=== PATIENT | female | born 1935 | race Hispanic/Latino ===

== ENCOUNTER 2016-11-24 15:20 | Inpatient (IN) | payer MEDICARE, MEDICAID ==
[2016-11-24 15:32] VITALS: BMI 21.0
--- NOTE | 2016-11-24 16:16 | ED PDOC ---
Arrival/HPI - General Chief Complaint: Abdominal Pain Time Seen by Provider: 11/24/16 15:40 Historian: Patient - History of Present Illness Narrative History of Present Illness (Text): 11/24/16 16:16 Patient complains of 6 day h/o constipation with mild abdominal discomfort that started today. States that she has been taking miralax bid x 4 days with no relief. Otherwise: (-) nausea / vomiting, (-) diarrhea, (-) fever, (-) urinary symptoms, (-) melena, (-) hematochezia. PMD [place]ucho Past Medical History - Provider Review Nursing Documentation Reviewed: Yes - Tetanus Immunization Tetanus Immunization: Unknown - Cardiac Hx Pacemaker: No - Pulmonary Hx Lung Cancer: Yes - HEENT Hx Cataracts: Yes (eye surgery) - Endocrine/Metabolic Hx Diabetes Mellitus Type 2: Yes - Hematological/Oncological Hx Blood Transfusions: No Hx Blood Transfusion Reaction: No - Musculoskeletal/Rheumatological Hx Musculoskeletal Disorders: Yes - Psychiatric Hx Emotional Abuse: No Hx Physical Abuse: No Hx Substance Use: No - Surgical History Hx Eye Surgery: Yes - Anesthesia Hx Anesthesia Reactions: No Hx Malignant Hyperthermia: No - Suicidal Assessment Feels Threatened In Home Enviroment: No Family/Social History - Physician Review Nursing Documentation Reviewed: Yes Family/Social History: No Known Family HX Smoking Status: Former Smoker Hx Alcohol Use: No Hx Substance Use: No Allergies/Home Meds Allergies/Adverse Reactions: Allergies acetaminophen [From Percocet] Allergy (Verified 11/24/16 15:33) REDNESS fluticasone [From Advair Diskus] Allergy (Verified 11/24/16 15:33) REDNESS oxycodone [From Percocet] Allergy (Verified 11/24/16 15:33) REDNESS salmeterol [From Advair Diskus] Allergy (Verified 11/24/16 15:33) REDNESS fluticasone furoate [From Breo Ellipta] Adverse Reaction (Verified 11/24/16 15: 33) REDNESS vilanterol [From Breo Ellipta] Adverse Reaction (Verified 11/24/16 15:33) REDNESS Home Medications: Home Meds Medication Instructions Recorded Confirmed Clopidogrel [Plavix] 75 mg PO DAILY 03/18/14 11/24/16 Glipizide [Glucotrol] 2.5 mg PO QAM 03/18/14 11/24/16 Polyethylene Glycol 3350 [Miralax] 17 gm PO QPM 03/18/14 11/24/16 Risedronate Sodium [Actonel] 70 mg PO FIFI 03/18/14 11/24/16 Albuterol Sulfate [Proair Hfa] 0.09 mg IH BID 06/06/15 11/24/16 Docusate [Colace] 100 mg PO QPM 06/06/15 11/24/16 Losartan [Cozaar] 100 mg PO QAM 06/06/15 11/24/16 amLODIPine [Norvasc] 5 mg PO QAM 06/06/15 11/24/16 Ezetimibe [Zetia] 10 mg PO DAILY 11/24/16 11/24/16 Review of Systems - Review of Systems Constitutional: Normal. absent: Fatigue, Weight Change, Fevers Respiratory: Normal. absent: SOB, Cough, Sputum Cardiovascular: Normal. absent: Chest Pain, Palpitations, Edema Gastrointestinal: Normal, Constipation. absent: Abdominal Pain, Stool Changes Musculoskeletal: Normal. absent: Arthralgias, Back Pain, Neck Pain Skin: Normal. absent: Rash, Pruritis, Skin Lesions Physical Exam Vital Signs Reviewed: Yes Vital Signs Temp Pulse Resp BP Pulse Ox 11/24/16 22:36 73 18 146/94 H 11/24/16 21:07 73 18 146/94 H 96 11/24/16 19:51 80 18 144/71 97 11/24/16 17:22 90 18 147/58 L 95 11/24/16 15:27 99 F 92 H 18 147/75 95 Temperature: Afebrile Blood Pressure: Normal Pulse: Regular Respiratory Rate: Normal Appearance: Positive for: Well-Appearing, Non-Toxic, Comfortable Pain Distress: None Mental Status: Positive for: Alert and Oriented X 3 - Systems Exam Head: Present: Atraumatic, Normocephalic Mouth: Present: Moist Mucous Membranes Pharnyx: Present: Normal Neck: Present: Normal Range of Motion. No: MIDLINE TENDERNESS Respiratory/Chest: Present: Clear to Auscultation, Good Air Exchange. No: Accessory Muscle Use, Wheezes, Rhonchi Cardiovascular: Present: Regular Rate and Rhythm, Normal S1, S2. No: Murmurs Abdomen: Present: Normal Bowel Sounds. No: Tenderness, Distention, Rebound, Guarding Rectal: Present: Rectal Tenderness, Hemorrhoids, Normal Rectal Tone, Other (no fecal impaction, soft stool in the rectum, emergency room RN Xochitl was present during the entire exam). No: Occult Blood, Gross Blood, Melena Back: Present: Normal Inspection. No: CVA Tenderness, Midline Tenderness Upper Extremity: Present: Normal Inspection, Normal ROM. No: Edema Lower Extremity: Present: Normal Inspection, Normal ROM. No: Edema Neurological: Present: GCS=15, CN II-XII Intact Skin: Present: Warm, Dry, Normal Color. No: Rashes Medical Decision Making ED Course and Treatment: 11/24/16 16:13 81 yo F presents with 6 day h/o constipation. Plan: - Fleet enema MA - Lactulose PO 11/24/16 16:17 Pt given lactulose PO and fleet enema MA. On re-evaluation, patient is resting in bed comfortably in no acute distress. Abdomen remains soft and non-tender with no guarding and no rebound. Pt was able to have a very small bowel movement after the fleet. However continues to c /o feeling constipated. AXR ordered. AXR: (+) moderate amount of constipation with stool noted in the rectum, otherwise NSBGP, (-) air fluid levels, as read by PA. Pt medicated with Mg citrate PO. Repeat rectal exam : (+) fecal impaction, attempted to disimpact the pt, however she could not tolerate the procedure and refuses for PA to attempt any further. Pt given another dose of fleet enema by RN. Pt assisted to the bedside commode and encouraged to have a BM. On second re-evaluation, patient is resting in bed comfortably in no acute distress. Abdomen remains soft and no tenderness, no guarding and no rebound. Pt states that she still can not have a BM. Call placed to pt's pmd. Case d/w Dr. Hinojosa, agrees with plan for inpt observation, requesting consult with Dr. Cunha. Agrees with current plan for labs and CT A/P. Pt notified of plan of care for inpt obs and agrees with current plan. 11/25/16 00:[address] Hinojosa notified, requesting for Dr. Rodriguez for surgery consult. Surgery resident called and case discussed, CT results reviewed with him, states he will evaluate the patient. Jerod IV ordered. - RAD Interpretation Narrative RAD Interpretations (Text): 11/25/16 00:45 CT A/P w/ po and iv contrast : FINDINGS: Lower thorax: Lung bases with scarring, atelectasis, changes of centrilobular emphysema. There is a large hiatus hernia. Calcifications in keeping with coronary artery disease, please correlate whether there has been previous procedures to the heart, likely mitral annular calcification. ABDOMEN: Liver: Multifocal hypoattenuating findings in the liver which are too small to characterize, as are not ultra characterized as benign cysts, comparison to previous is recommended. Gallbladder and bile ducts: The gallbladder is mildly distended but no calcified stones. Common bile duct within normal limits. Pancreas: Unremarkable. No mass. No ductal dilation. Spleen: Unremarkable. No splenomegaly. Adrenals: Unremarkable. No mass. Kidneys and ureters: Multiple hypoattenuating findings in the bilateral kidneys which are too small to characterize. No hydronephrosis of either kidney. Stomach and bowel: There is multifocal pneumatosis involving the large intestine , favor that there is pneumatosis of the ascending colon with possibility of pseudopneumatosis in this area, additional findings of pneumatosis in the transverse colon through the rectum in a segmental distribution. The rectum is greatly distended and packed with formed fecal material with pneumatosis and surrounding inflammatory change in the rectum is considered to be the most abnormal segment of the large intestine. High suspicion for stercoral colitis (colitis on the basis of fecal impaction). There is prominent edema/stranding and fluid surrounding the rectum in keeping with suspected colitis affecting primarily this area. Remainder of the large intestine does not have adjacent inflammatory change. The small bowel is within normal limits. Appendix: No findings to suggest acute appendicitis. PELVIS: Bladder: Unremarkable. No mass. Reproductive: Uterus is not visualized in keeping with hysterectomy. ABDOMEN and PELVIS: Intraperitoneal space: There is no free intraperitoneal air. Fluid adjacent to rectum. Bones/joints: Degenerative spine changes. No acute fracture. No dislocation. Soft tissues: Coronal im 48 likely penetrating ulcer vs short focal dissection. Vasculature: There is atherosclerotic calcification. Within limits of the study which was not performed as an angiogram, the mesenteric arteries and veins are favored to be patent. Lymph nodes: Unremarkable. No enlarged lymph nodes. Multiple small retroperitoneal nodes. IMPRESSION: Marked distention of the rectum by formed fecal material with pneumatosis most prominent in the rectum and prominent adjacent inflammatory changes, in keeping with colitis on the basis of fecal impaction. Multifocal pneumatosis in the large intestine, although some of this particularly in the proximal colon may represent pneumatosis, and further noted that there is no finding of portal venous air. Other as above. If there has been previous imaging please compare on-site. No free air. Dictated and Authenticated by: Mimi Carmen MD 11/25/2016 12:37 AM Eastern Time ([place] & [place]) Radiology Orders: 11/24/16 17:09 obstructive series [ABD 2 VIEWS (FLAT/UP OR DECUB)] [RAD] Stat 11/24/16 20:19 ABD PELVIS PO & IV CONTRAST [CT] Stat - Medication Orders Current Medication Orders: Amlodipine Besylate (Norvasc) 5 mg PO QAM [facility] Clopidogrel Bisulfate (Plavix) 75 mg PO DAILY [facility] Sodium Chloride (Sodium Chloride 0.9%) 1,000 mls @ 75 mls/hr IV .[id number] [facility] Metronidazole (Flagyl) 250 mg in 50 mls @ 100 mls/hr IVPB Q8 [facility] PRN Reason: Protocol Stop: 11/30/16 06:01 Ampicillin Sodium/Sulbactam Sodium (Unasyn 1 Gm-0.5 Gm) 1 gm in 100 mls @ 100 mls/hr IVPB Q6H [facility] PRN Reason: Protocol Losartan Potassium (Cozaar) 100 mg PO QAM [facility] Discontinued Medications Sodium Chloride (Sodium Chloride 0.9%) 500 mls @ 1,000 mls/hr IV .Q30M STA Stop: 11/24/16 20:48 Last Admin: 11/24/16 21:11 Dose: 1,000 mls/hr Piperacillin Sod/Tazobactam Sod (Zosyn 3.375 In Ns 100ml) 100 mls @ 200 mls/hr IVPB STAT STA PRN Reason: Protocol Stop: 11/25/16 01:23 Iohexol (Omnipaque 240 (50 Ml)) Confirm Administered Dose 50 ml .ROUTE .STK-MED ONE Stop: 11/24/16 20:26 Iohexol (Omnipaque 350 100 Ml) Confirm Administered Dose 350 mg .ROUTE .STK-MED ONE Stop: 11/24/16 20:26 Lactulose (Enulose) 20 gm PO ONCE STA Stop: 11/24/16 16:04 Last Admin: 11/24/16 16:21 Dose: 20 gm Magnesium Citrate (Citrate Of Mag) 300 ml PO ONCE ONE Stop: 11/24/16 17:42 Last Admin: 11/24/16 18:04 Dose: 300 ml Morphine Sulfate (Morphine) 2 mg IVP STAT STA Stop: 11/24/16 20:43 Last Admin: 11/24/16 21:10 Dose: 2 mg Ondansetron HCl (Zofran Inj) 4 mg IVP STAT STA Stop: 11/24/16 20:43 Last Admin: 11/24/16 21:09 Dose: 4 mg Sodium Phosphate (Fleet Enema) 135 ml RC STAT STA Stop: 11/24/16 16:04 Last Admin: 11/24/16 16:22 Dose: 135 ml Sodium Phosphate (Fleet Enema) 135 ml RC STAT STA Stop: 11/24/16 17:31 Last Admin: 11/24/16 18:04 Dose: 135 ml - PA / ILLUSIONIST / Resident Statement / has reviewed & agrees with the documentation as recorded. Disposition/Present on Arrival - Present on Arrival Any Indicators Present on Arrival: No History of DVT/PE: No History of Uncontrolled Diabetes: No Urinary Catheter: No History of Decub. Ulcer: No History Surgical Site Infection Following: None - Disposition Have Diagnosis and Disposition been Completed?: Yes Diagnosis: Constipation Disposition: HOSPITALIZED Disposition Time: 20:00 Patient Plan: Observation Patient Problems: Current Active Problems Problem Status Onset Constipation Acute Condition: STABLE
[2016-11-24] MEDS ORDERED: Magnesium Citrate Oral SOL (300 ml) PO ONE (17:41)
[2016-11-24] MEDS ORDERED: Sodium Chloride 0.9% 500 ML IV STA (20:19)
[2016-11-24] MEDS ORDERED: Iohexol 240 (50 ml) ONE (20:25)
[2016-11-24] MEDS ORDERED: Iohexol 350 MG/100 ML VIAL ONE (20:25)
[2016-11-24] MEDS ORDERED: Morphine 4 mg/ml ISec IVP STA (20:42)
[2016-11-24 21:33] LABS: BASO # 0.01 K/mm3 (0.0-2.0); BASO % 0.1 % (0.0-3.0); EOS % 0.1 % (1.5-5.0); GRAN # 11.35 (1.4-6.5); GRAN % 85.8 % (50.0-68.0); HEMOGLOBIN 14.6 gm/dL (12.0-16.0); LYMPH # 1.1 (1.2-3.4); LYMPH % 8.5 % (22.0-35.0); MEAN CELL VOLUME 84.4 fL (80.0-105.0); MEAN CORPUSCULAR HEMOGLOBIN 28.5 pg (25.0-35.0); MEAN CORPUSCULAR HGB CONC 33.8 g/dl (31.0-37.0); MEAN PLATELET VOLUME 10.3 fl (7.0-11.0); MONO # 0.7 (0.1-0.6); MONO % 5.5 % (1.0-6.0); PLATELET COUNT 271 10^3/uL (120.0-450.0); RBC 5.12 10^6/uL (3.5-6.1); RED CELL DISTRIBUTION WIDTH 13.9 % (11.5-14.5); WHITE BLOOD COUNT 13.2 10^3/ul (4.5-11.0)
[2016-11-24 21:42] LABS: INR 1.04 (0.93-1.08); PARTIAL THROMBOPLASTIN TIME 26.1 Seconds (23.7-30.8); PROTHROMBIN TIME 11.2 Seconds (9.9-11.8)
[2016-11-24 21:46] LABS: ALB/GLOB RATIO 1.5 (1.1-1.8); ALT/SGPT 29 U/L (7-56); AST/SGOT 25 U/L (15-39); BLOOD UREA NITROGEN 25 mg/dL (7-21); CALCIUM 10.2 mg/dL (8.4-10.5); GFR AFRICAN-AMERICAN > 60; GFR NON-AFRICAN AMERICAN 53; LIPASE 70 U/L (23-300)
--- NOTE | 2016-11-25 00:37 | CT ---
EXAM: CT Abdomen and Pelvis With Intravenous Contrast CLINICAL HISTORY: 81 years old, female; Pain; Abdominal pain; Generalized; Additional info: Constipation, R/O obstruction TECHNIQUE: Axial computed tomography images of the abdomen and pelvis with intravenous contrast. This CT exam was performed using one or more of the following dose reduction techniques: automated exposure control, adjustment of the mA and/or kV according to patient size, and/or use of iterative reconstruction technique. CONTRAST: 100 mL of OMNI 350 administered intravenously. EXAM DATE/TIME: Exam ordered 11/24/2016 8:19 PM COMPARISON: DX - ABD 2 VIEWS (FLAT/UP OR DECUB) 11/24/2016 5:17:57 PM FINDINGS: Lower thorax: Lung bases with scarring, atelectasis, changes of centrilobular emphysema. There is a large hiatus hernia. Calcifications in keeping with coronary artery disease, please correlate whether there has been previous procedures to the heart, likely mitral annular calcification. ABDOMEN: Liver: Multifocal hypoattenuating findings in the liver which are too small to characterize, as are not ultra characterized as benign cysts, comparison to previous is recommended. Gallbladder and bile ducts: The gallbladder is mildly distended but no calcified stones. Common bile duct within normal limits. Pancreas: Unremarkable. No mass. No ductal dilation. Spleen: Unremarkable. No splenomegaly. Adrenals: Unremarkable. No mass. Kidneys and ureters: Multiple hypoattenuating findings in the bilateral kidneys which are too small to characterize. No hydronephrosis of either kidney. Stomach and bowel: There is multifocal pneumatosis involving the large intestine, favor that there is pneumatosis of the ascending colon with possibility of pseudopneumatosis in this area, additional findings of pneumatosis in the transverse colon through the rectum in a segmental distribution. The rectum is greatly distended and packed with formed fecal material with pneumatosis and surrounding inflammatory change in the rectum is considered to be the most abnormal segment of the large intestine. High suspicion for stercoral colitis (colitis on the basis of fecal impaction). There is prominent edema/stranding and fluid surrounding the rectum in keeping with suspected colitis affecting primarily this area. Remainder of the large intestine does not have adjacent inflammatory change. The small bowel is within normal limits. Appendix: No findings to suggest acute appendicitis. PELVIS: Bladder: Unremarkable. No mass. Reproductive: Uterus is not visualized in keeping with hysterectomy. ABDOMEN and PELVIS: Intraperitoneal space: There is no free intraperitoneal air. Fluid adjacent to rectum. Bones/joints: Degenerative spine changes. No acute fracture. No dislocation. Soft tissues: Coronal im 48 likely penetrating ulcer vs short focal dissection. Vasculature: There is atherosclerotic calcification. Within limits of the study which was not performed as an angiogram, the mesenteric arteries and veins are favored to be patent. Lymph nodes: Unremarkable. No enlarged lymph nodes. Multiple small retroperitoneal nodes. IMPRESSION: Marked distention of the rectum by formed fecal material with pneumatosis most prominent in the rectum and prominent adjacent inflammatory changes, in keeping with colitis on the basis of fecal impaction. Multifocal pneumatosis in the large intestine, although some of this particularly in the proximal colon may represent pneumatosis, and further noted that there is no finding of portal venous air. Other as above. If there has been previous imaging please compare on-site. No free air.
[2016-11-25] MEDS ORDERED: Piperacillin/Tazobact 3.375 gm 100 ML IVPB STA (00:54)
--- NOTE | 2016-11-25 01:38 | CP.PCM.CON ---
History of Present Illness - History of Present Illness History of Present Illness: Gen Sx: Dr Rodriguez Re: Constipation PMH obtained from medical records and sister who is bedside. Pt is an 81F with PMH of HTN, DM, Carotid Artery stenosis and chronic constipation. Pt reports to ED with worsening abdominal pain and constipation x 6 days. She denies any f/c, n/v or diarrhea. Pt has a history of similar problems in the past. Most recently in May when she also had a colonoscopy with multiple tubular adenoma polyps removed. Sister reports she has been taking miralax, colace and lactulose at home and has been unable to pass a bowel movement. In the ED pt received 3 phosphate enemas and manual disimpaction was attempted but pt could not tolerate due to pain. CT shows significant fecal impaction, possible stercoral proctitis and mild degree of pneumatosis. PMH: HTN, DM PSH: Hysterectomy Allergies: tylenol, fluticasone, oxycodone, salmeterol, vilanterol Review of Systems - Review of Systems All systems: reviewed and no additional remarkable complaints except (as per hpi ) Past Patient History - Tetanus Immunizations Tetanus Immunization: Unknown - Past Social History Smoking Status: Former Smoker - CARDIAC Hx Pacemaker: No - PULMONARY Hx Lung Cancer: Yes - HEENT Hx Cataracts: Yes (eye surgery) - ENDOCRINE/METABOLIC Hx Diabetes Mellitus Type 2: Yes - HEMATOLOGICAL/ONCOLOGICAL Hx Blood Transfusions: No Hx Blood Transfusion Reaction: No - MUSCULOSKELETAL/RHEUMATOLOGICAL Hx Musculoskeletal Disorders: Yes - PSYCHIATRIC Hx Emotional Abuse: No Hx Physical Abuse: No Hx Substance Use: No - SURGICAL HISTORY Hx Eye Surgery: Yes - ANESTHESIA Hx Anesthesia Reactions: No Hx Malignant Hyperthermia: No Meds Allergies/Adverse Reactions: Allergies Allergy/AdvReac Type Severity Reaction Status Date / Time acetaminophen [From Percocet] Allergy REDNESS Verified 11/24/16 15:33 fluticasone Allergy REDNESS Verified 11/24/16 15:33 [From Advair Diskus] oxycodone [From Percocet] Allergy REDNESS Verified 11/24/16 15:33 salmeterol Allergy REDNESS Verified 11/24/16 15:33 [From Advair Diskus] fluticasone furoate AdvReac REDNESS Verified 11/24/16 15:33 [From Breo Ellipta] vilanterol AdvReac REDNESS Verified 11/24/16 15:33 [From Fab Singh] - Medications Medications: Current Medications Amlodipine Besylate (Norvasc) 5 mg PO QAM [facility] Clopidogrel Bisulfate (Plavix) 75 mg PO DAILY [facility] Sodium Chloride (Sodium Chloride 0.9%) 1,000 mls @ 75 mls/hr IV .[id number] [facility] Losartan Potassium (Cozaar) 100 mg PO QAM [facility] Physical Exam - Constitutional Appears: Non-toxic, No Acute Distress - Respiratory Exam Respiratory Exam: absent: Accessory Muscle Use, Respiratory Distress - Cardiovascular Exam Cardiovascular Exam: REGULAR RHYTHM. absent: Tachycardia - GI/Abdominal Exam GI & Abdominal Exam: Distended, Firm, Tenderness (diffuse). absent: Guarding, Hernia - Neurological Exam Neurological exam: Alert - Psychiatric Exam Psychiatric exam: Normal Affect, Normal Mood - Skin Skin Exam: Normal Color, Warm Results - Vital Signs Recent Vital Signs: Last Vital Signs Temp 99 F 11/24/16 15:27 Pulse 73 11/24/16 22:36 Resp 16 11/24/16 23:00 BP 146/94 H 11/24/16 22:36 Pulse Ox 99 11/24/16 23:00 - Labs Result Diagrams: 11/24/16 20:45 11/24/16 20:45 Labs: Laboratory Results - last 24 hr 11/24/16 11/24/16 11/24/16 20:45 20:45 20:45 WBC 13.2 H D RBC 5.12 Hgb 14.6 Hct 43.2 MCV 84.4 MCH 28.5 MCHC 33.8 RDW 13.9 Plt Count 271 MPV 10.3 Gran % 85.8 H Lymph % (Auto) 8.5 L [place] % (Auto) 5.5 Eos % (Auto) 0.1 L Baso % (Auto) 0.1 Gran # 11.35 H Lymph # 1.1 L [place] # 0.7 H Eos # 0.0 Baso # 0.01 PT 11.2 INR 1.04 APTT 26.1 Sodium 143 Potassium 4.4 Chloride 99 Carbon Dioxide 25 Anion Gap 23 H BUN 25 H Creatinine 1.0 Est GFR ( Amer) > 60 Est GFR (Non-Af Amer) 53 Random Glucose 144 H Calcium 10.2 Total Bilirubin 1.2 AST 25 ALT 29 Alkaline Phosphatase 79 Total Protein 8.4 H Albumin 5.0 H Globulin 3.4 Albumin/Globulin Ratio 1.5 Lipase 70 Assessment & Plan - Assessment and Plan (Free Text) Assessment: 81F with fecal impaction and pneumatosis coli Plan: NPO IV Fluids Resumed PO home meds GI Consult Dr Obrien IV abx pt not tolerating manual disimpaction, may need disimpaction by surgery team or GI team under anesthesia will d/w Dr Michael Pat, PGY3 - Date & Time Date: 11/25/16 Time: 01:43
[2016-11-25] MEDS: Sodium Chloride 0.9% 1,000 ML IV SCH ×2 (03:04→23:00)
--- NOTE | 2016-11-25 03:43 | CP.PCM.PN ---
Subjective - Date & Time of Evaluation Date of Evaluation: 11/25/16 Time of Evaluation: 03:42 - Subjective Subjective: Nurse calls and tells that She can't pass urine. Tried 4 times. A few drops can be passed each time. Daughter Requests cath. Bladder scan 356 cc This 81 year old woman is admitted with abdominal discomfort, constipation. Has PMH of DM, HTN, carotid artery stenosis, constipation. Objective - Vital Signs/Intake and Output Vital Signs (last 24 hours): Temp Pulse Resp BP Pulse Ox 99 F 73 16 146/94 H 99 11/24/16 15:27 11/24/16 22:36 11/24/16 23:00 11/24/16 22:36 11/24/16 23:00 - Medications Medications: Current Medications Amlodipine Besylate (Norvasc) 5 mg PO QAM [facility] Clopidogrel Bisulfate (Plavix) 75 mg PO DAILY [facility] Sodium Chloride (Sodium Chloride 0.9%) 1,000 mls @ 75 mls/hr IV .[id number] [facility] Last Admin: 11/25/16 03:04 Dose: 75 mls/hr Metronidazole (Flagyl) 250 mg in 50 mls @ 100 mls/hr IVPB Q8 [facility] PRN Reason: Protocol Stop: 11/30/16 06:01 Ampicillin Sodium/Sulbactam Sodium (Unasyn 1 Gm-0.5 Gm) 1 gm in 100 mls @ 100 mls/hr IVPB Q6H [facility] PRN Reason: Protocol Last Admin: 11/25/16 03:03 Dose: 100 mls/hr Losartan Potassium (Cozaar) 100 mg PO QAM [facility] - Labs Labs: 11/24/16 20:45 11/24/16 20:45 PT 11.2 Seconds (9.9-11.8) 11/24/16 20:45 INR 1.04 (0.93-1.08) 11/24/16 20:45 APTT 26.1 Seconds (23.7-30.8) 11/24/16 20:45 Last Vital Signs Temp 99 F 11/24/16 15:27 Pulse 73 11/24/16 22:36 Resp 16 11/24/16 23:00 BP 146/94 H 11/24/16 22:36 Pulse Ox 99 11/24/16 23:00 - Constitutional Appears: Well, No Acute Distress - Head Exam Head Exam: ATRAUMATIC, NORMAL INSPECTION, NORMOCEPHALIC - Eye Exam Eye Exam: Normal appearance - ENT Exam ENT Exam: Normal External Ear Exam - Neck Exam Neck Exam: Normal Inspection - Respiratory Exam Respiratory Exam: NORMAL BREATHING PATTERN - Cardiovascular Exam Cardiovascular Exam: absent: JVD - GI/Abdominal Exam GI & Abdominal Exam: Distended (Mild suprapubic .) - Rectal Exam Rectal Exam: Deferred - Exam Additional comments: Deferred. - Extremities Exam Extremities Exam: Normal Inspection - Back Exam Back Exam: NORMAL INSPECTION - Neurological Exam Neurological Exam: Alert, Oriented x3 - Psychiatric Exam Psychiatric exam: Normal Affect, Normal Mood - Skin Skin Exam: Normal Color Assessment and Plan - Assessment and Plan (Free Text) Assessment: Urinary retention. Chronic constipation. DM II. Hypertension. History of carotid artery stenosis. Plan: Straight catheterization. Continue management as per PMd.
[2016-11-25 05:06] LABS: URINE BILIRUBIN SMALL (NEGATIVE); URINE BLOOD TRACE-LYSED (NEGATIVE); URINE GLUCOSE (UA) NEGATIVE (NEGATIVE); URINE LEUKOCYTE ESTERASE NEGATIVE Leu/uL (NEGATIVE); URINE NITRATE NEGATIVE (NEGATIVE); URINE PROTEIN NEGATIVE mg/dL (<30 mg/dL)
[2016-11-25 05:14] LABS: URINE APPEARANCE SL CLOUDY (CLEAR); URINE COLOR YELLOW (YELLOW)
[2016-11-25 05:20] LABS: URINE EPITHELIAL CELLS 0 - 2 /hpf (0-5); URINE HYALINE CAST 0 - 2 /hpf; URINE RBC 0 - 2 /hpf (0-2); URINE WBC 0 - 2 /hpf (0-6)
[2016-11-25] MEDS ORDERED: metroNIDAZOLE IV 250mg/50 ml 250 MG/50 ML BAG IVPB SCH (06:00)
--- NOTE | 2016-11-25 07:53 | CP.PCM.PN ---
Subjective - Date & Time of Evaluation Date of Evaluation: 11/25/16 Time of Evaluation: 07:48 - Subjective Subjective: General Surgery PGY [address] Rodriguez Patient seen and examined this morning at bedside. Patient has not been in any pain since she was straight cathed this morning around 0430. She is not passing any gas. She has not had a BM. No F/C, N/V, headache, dizziness, numbness, SOB or CP. Objective - Vital Signs/Intake and Output Vital Signs (last 24 hours): Temp Pulse Resp BP Pulse Ox 98.5 F 69 18 125/55 L 97 11/25/16 07:43 11/25/16 07:43 11/25/16 07:43 11/25/16 07:43 11/25/16 07:43 - Medications Medications: Current Medications Amlodipine Besylate (Norvasc) 5 mg PO QAM [facility] Sodium Chloride (Sodium Chloride 0.9%) 1,000 mls @ 75 mls/hr IV .[id number] [facility] Last Admin: 11/25/16 03:04 Dose: 75 mls/hr Metronidazole (Flagyl) 250 mg in 50 mls @ 100 mls/hr IVPB Q8 [facility] PRN Reason: Protocol Stop: 11/30/16 06:01 Last Admin: 11/25/16 05:46 Dose: 100 mls/hr Ampicillin Sodium/Sulbactam Sodium (Unasyn 1 Gm-0.5 Gm) 1 gm in 100 mls @ 100 mls/hr IVPB Q6H [facility] PRN Reason: Protocol Last Admin: 11/25/16 03:03 Dose: 100 mls/hr Losartan Potassium (Cozaar) 100 mg PO QAM [facility] - Labs Labs: 11/24/16 20:45 11/24/16 20:45 PT 11.2 Seconds (9.9-11.8) 11/24/16 20:45 INR 1.04 (0.93-1.08) 11/24/16 20:45 APTT 26.1 Seconds (23.7-30.8) 11/24/16 20:45 - Constitutional Appears: Non-toxic, No Acute Distress - Head Exam Head Exam: ATRAUMATIC, NORMOCEPHALIC - Eye Exam Eye Exam: EOMI - ENT Exam ENT Exam: Mucous Membranes Moist - Respiratory Exam Respiratory Exam: NORMAL BREATHING PATTERN - Cardiovascular Exam Cardiovascular Exam: REGULAR RHYTHM, +S1, +S2 - GI/Abdominal Exam GI & Abdominal Exam: Soft, Normal Bowel Sounds. absent: Tenderness - Psychiatric Exam Psychiatric exam: Normal Affect, Normal Mood - Skin Skin Exam: Dry, Intact, Normal Color, Warm Assessment and Plan - Assessment and Plan (Free Text) Assessment: 81 year old F with fecal impaction and pneumatosis coli. Plan: Patient will likely need disimpaction under anesthesia, as she did not tolerate bedside disimpaction over weekend. Keep NPO for today. Waqas Reyes PGY 1
--- NOTE | 2016-11-25 08:19 | CP.PCM.HP ---
History of Present Illness - History of Present Illness History of Present Illness: 81 y/o w/f w/ a 6 day hx of no bm and is very uncomfortable and urinary retention requiring straight has been on miralax outpatient w/ failed tmt and is now in the hosp for more intensive tmt Present on Admission - Present on Admission Any Indicators Present on Admission: Yes History of DVT/PE: No History of Uncontrolled Diabetes: No Urinary Catheter: Yes Decubitus Ulcer Present: No Review of Systems - Gastrointestinal Gastrointestinal: Bloating, Constipation - Genitourinary Genitourinary: Change in Urinary Stream Additional comments: retention - Musculoskeletal Musculoskeletal: Muscle Weakness Past Patient History - Tetanus Immunizations Tetanus Immunization: Unknown - Past Social History Smoking Status: Former Smoker Chewing Tobacco Use: No Cigar Use: No Alcohol: None Drugs: Denies - CARDIAC Hx Pacemaker: No - PULMONARY Hx Lung Cancer: Yes - HEENT Hx Cataracts: Yes (eye surgery) - ENDOCRINE/METABOLIC Hx Diabetes Mellitus Type 2: Yes - HEMATOLOGICAL/ONCOLOGICAL Hx Blood Transfusions: No Hx Blood Transfusion Reaction: No - MUSCULOSKELETAL/RHEUMATOLOGICAL Hx Musculoskeletal Disorders: Yes - GASTROINTESTINAL Hx Constipation: Yes - PSYCHIATRIC Hx Emotional Abuse: No Hx Physical Abuse: No Hx Substance Use: No - SURGICAL HISTORY Hx Eye Surgery: Yes - ANESTHESIA Hx Anesthesia Reactions: No Hx Malignant Hyperthermia: No Meds Allergies/Adverse Reactions: Allergies Allergy/AdvReac Type Severity Reaction Status Date / Time acetaminophen [From Percocet] Allergy REDNESS Verified 11/24/16 15:33 fluticasone Allergy REDNESS Verified 11/24/16 15:33 [From Advair Diskus] oxycodone [From Percocet] Allergy REDNESS Verified 11/24/16 15:33 salmeterol Allergy REDNESS Verified 11/24/16 15:33 [From Advair Diskus] fluticasone furoate AdvReac REDNESS Verified 11/24/16 15:33 [From Breo Ellipta] vilanterol AdvReac REDNESS Verified 11/24/16 15:33 [From Breo Ellipta] Physical Exam - Constitutional Appears: In Acute Distress - Head Exam Head Exam: ATRAUMATIC, NORMAL INSPECTION, NORMOCEPHALIC - Eye Exam Eye Exam: Normal appearance - ENT Exam ENT Exam: Mucous Membranes Moist - Neck Exam Neck exam: Positive for: Normal Inspection - Respiratory Exam Respiratory Exam: Decreased Breath Sounds, Clear to Auscultation Bilateral - Cardiovascular Exam Cardiovascular Exam: REGULAR RHYTHM - GI/Abdominal Exam GI & Abdominal Exam: Hypoactive Bowel Sounds, Soft - Rectal Exam Rectal Exam: Fecal Impaction - Back Exam Back exam: NORMAL INSPECTION - Neurological Exam Neurological exam: Alert, CN II-XII Intact - Psychiatric Exam Psychiatric exam: Normal Affect - Skin Skin Exam: Warm Results - Vital Signs Recent Vital Signs: Last Vital Signs Temp 98.5 F 11/25/16 07:43 Pulse 69 11/25/16 07:43 Resp 18 11/25/16 07:43 BP 125/55 L 11/25/16 07:43 Pulse Ox 97 11/25/16 07:43 - Labs Result Diagrams: 11/24/16 20:45 11/24/16 20:45 Labs: Laboratory Results - last 24 hr 11/24/16 11/24/16 11/24/16 20:45 20:45 20:45 WBC 13.2 H D RBC 5.12 Hgb 14.6 Hct 43.2 MCV 84.4 MCH 28.5 MCHC 33.8 RDW 13.9 Plt Count 271 MPV 10.3 Gran % 85.8 H Lymph % (Auto) 8.5 L [place] % (Auto) 5.5 Eos % (Auto) 0.1 L Baso % (Auto) 0.1 Gran # 11.35 H Lymph # 1.1 L [place] # 0.7 H Eos # 0.0 Baso # 0.01 PT 11.2 INR 1.04 APTT 26.1 Sodium 143 Potassium 4.4 Chloride 99 Carbon Dioxide 25 Anion Gap 23 H BUN 25 H Creatinine 1.0 Est GFR ( Amer) > 60 Est GFR (Non-Af Amer) 53 Random Glucose 144 H Calcium 10.2 Total Bilirubin 1.2 AST 25 ALT 29 Alkaline Phosphatase 79 Total Protein 8.4 H Albumin 5.0 H Globulin 3.4 Albumin/Globulin Ratio 1.5 Lipase 70 Urine Color Urine Appearance Urine pH Ur Specific [place] Urine Protein Urine Glucose (UA) Urine Ketones Urine Blood Urine Nitrate Urine Bilirubin Urine Urobilinogen Ur Leukocyte Esterase Urine RBC Urine WBC Ur Epithelial Cells Hyaline Casts 11/25/16 04:30 WBC RBC Hgb Hct MCV MCH MCHC RDW Plt Count MPV Gran % Lymph % (Auto) [place] % (Auto) Eos % (Auto) Baso % (Auto) Gran # Lymph # [place] # Eos # Baso # PT INR APTT Sodium Potassium Chloride Carbon Dioxide Anion Gap BUN Creatinine Est GFR ( Amer) Est GFR (Non-Af Amer) Random Glucose Calcium Total Bilirubin AST ALT Alkaline Phosphatase Total Protein Albumin Globulin Albumin/Globulin Ratio Lipase Urine Color Yellow Urine Appearance Sl cloudy Urine pH 6.0 Ur Specific [place] 1.020 Urine Protein Negative Urine Glucose (UA) Negative Urine Ketones 40 H Urine Blood Trace-lysed H Urine Nitrate Negative Urine Bilirubin Small H Urine Urobilinogen 1.0 H Ur Leukocyte Esterase Negative Urine RBC 0 - 2 Urine WBC 0 - 2 Ur Epithelial Cells 0 - 2 Hyaline Casts 0 - 2 Assessment & Plan - Assessment and Plan (Free Text) Assessment: fecal impaction abd pain urinary retention dm htn failed outpatient tmt leukocytosis Plan: gi eval surgical eval straight cath iv abs checking labs discussed w/ family at length - Date & Time Date: 11/25/16 Time: 08:00
--- NOTE | 2016-11-25 09:24 | RAD ---
HISTORY: constipation COMPARISON: No prior. FINDINGS: BOWEL: Normal. No obstruction. No free air. BONES: Normal. OTHER FINDINGS: Stool retained in the rectum IMPRESSION: No active disease.
[2016-11-25] MEDS ORDERED: Morphine 4 mg/ml ISec IVP STA (10:45)
[2016-11-25] MEDS ORDERED: Peg-Electrolyte Oral Soln 4L (Golytely) PO ONE (11:02)
[2016-11-25] MEDS ORDERED: Lidocaine 2% Jelly (Uro-Jet) TOP STA (11:25)
--- NOTE | 2016-11-25 11:40 | CP.PCM.CON ---
History of Present Illness - History of Present Illness History of Present Illness: 81 year old female with PMH of HTN, DM, carotid artery stenosis, history of chronic constipation was brought in because of worsening abdominal pain as well as constipation since a week ago. The patient denies diarrhea, no vomiting, no fever or chills, no headache or dizziness, no chest pain, no SOB, no cough or rhinorrhea, no sore throat, no dysphagia. In the ED, CT scan of the abdomen and pelvis was done which showed colitis associated with fecal impaction. Infectious Diseases consult is requested for antibiotic recommendation. Review of Systems - Review of Systems All systems: reviewed and no additional remarkable complaints except (as per HPI ) Past Patient History - Tetanus Immunizations Tetanus Immunization: Unknown - Past Social History Smoking Status: Former Smoker Chewing Tobacco Use: No Cigar Use: No Alcohol: None Drugs: Denies - CARDIAC Hx Pacemaker: No - PULMONARY Hx Lung Cancer: Yes - HEENT Hx Cataracts: Yes (eye surgery) - ENDOCRINE/METABOLIC Hx Diabetes Mellitus Type 2: Yes - HEMATOLOGICAL/ONCOLOGICAL Hx Blood Transfusions: No Hx Blood Transfusion Reaction: No - MUSCULOSKELETAL/RHEUMATOLOGICAL Hx Musculoskeletal Disorders: Yes - GASTROINTESTINAL Hx Constipation: Yes - PSYCHIATRIC Hx Emotional Abuse: No Hx Physical Abuse: No Hx Substance Use: No - SURGICAL HISTORY Hx Eye Surgery: Yes - ANESTHESIA Hx Anesthesia Reactions: No Hx Malignant Hyperthermia: No Meds Allergies/Adverse Reactions: Allergies Allergy/AdvReac Type Severity Reaction Status Date / Time acetaminophen [From Percocet] Allergy REDNESS Verified 11/24/16 15:33 fluticasone Allergy REDNESS Verified 11/24/16 15:33 [From Advair Diskus] oxycodone [From Percocet] Allergy REDNESS Verified 11/24/16 15:33 salmeterol Allergy REDNESS Verified 11/24/16 15:33 [From Advair Diskus] fluticasone furoate AdvReac REDNESS Verified 11/24/16 15:33 [From Breo Ellipta] vilanterol AdvReac REDNESS Verified 11/24/16 15:33 [From Breo Ellipta] - Medications Medications: Current Medications Amlodipine Besylate (Norvasc) 5 mg PO QAM [facility] Sodium Chloride (Sodium Chloride 0.9%) 1,000 mls @ 75 mls/hr IV .[id number] [facility] Last Admin: 11/25/16 03:04 Dose: 75 mls/hr Piperacillin Sod/Tazobactam Sod (Zosyn 3.375 In Ns 100ml) 100 mls @ 200 mls/hr IVPB Q6 REPLACED BY [facility] PRN Reason: Protocol Stop: 12/02/16 12:01 Losartan Potassium (Cozaar) 100 mg PO QAM REPLACED BY [facility] Physical Exam - Constitutional Appears: Non-toxic, No Acute Distress - Head Exam Head Exam: NORMAL INSPECTION - ENT Exam ENT Exam: Mucous Membranes Moist - Neck Exam Neck exam: Negative for: Lymphadenopathy, Meningismus - Respiratory Exam Respiratory Exam: Decreased Breath Sounds - Cardiovascular Exam Cardiovascular Exam: +S1, +S2 - GI/Abdominal Exam GI & Abdominal Exam: Soft. absent: Tenderness Results - Vital Signs Recent Vital Signs: Last Vital Signs Temp 98.5 F 11/25/16 07:43 Pulse 69 11/25/16 07:43 Resp 18 11/25/16 07:43 BP 125/55 L 11/25/16 07:43 Pulse Ox 97 11/25/16 07:43 - Labs Result Diagrams: 11/24/16 20:45 11/24/16 20:45 Labs: Laboratory Results - last 24 hr 11/24/16 11/24/16 11/24/16 20:45 20:45 20:45 WBC 13.2 H D RBC 5.12 Hgb 14.6 Hct 43.2 MCV 84.4 MCH 28.5 MCHC 33.8 RDW 13.9 Plt Count 271 MPV 10.3 Gran % 85.8 H Lymph % (Auto) 8.5 L [place] % (Auto) 5.5 Eos % (Auto) 0.1 L Baso % (Auto) 0.1 Gran # 11.35 H Lymph # 1.1 L [place] # 0.7 H Eos # 0.0 Baso # 0.01 PT 11.2 INR 1.04 APTT 26.1 Sodium 143 Potassium 4.4 Chloride 99 Carbon Dioxide 25 Anion Gap 23 H BUN 25 H Creatinine 1.0 Est GFR ( Amer) > 60 Est GFR (Non-Af Amer) 53 Random Glucose 144 H Calcium 10.2 Total Bilirubin 1.2 AST 25 ALT 29 Alkaline Phosphatase 79 Total Protein 8.4 H Albumin 5.0 H Globulin 3.4 Albumin/Globulin Ratio 1.5 Lipase 70 Urine Color Urine Appearance Urine pH Ur Specific [place] Urine Protein Urine Glucose (UA) Urine Ketones Urine Blood Urine Nitrate Urine Bilirubin Urine Urobilinogen Ur Leukocyte Esterase Urine RBC Urine WBC Ur Epithelial Cells Hyaline Casts 11/25/16 04:30 WBC RBC Hgb Hct MCV MCH MCHC RDW Plt Count MPV Gran % Lymph % (Auto) [place] % (Auto) Eos % (Auto) Baso % (Auto) Gran # Lymph # [place] # Eos # Baso # PT INR APTT Sodium Potassium Chloride Carbon Dioxide Anion Gap BUN Creatinine Est GFR ( Amer) Est GFR (Non-Af Amer) Random Glucose Calcium Total Bilirubin AST ALT Alkaline Phosphatase Total Protein Albumin Globulin Albumin/Globulin Ratio Lipase Urine Color Yellow Urine Appearance Sl cloudy Urine pH 6.0 Ur Specific [place] 1.020 Urine Protein Negative Urine Glucose (UA) Negative Urine Ketones 40 H Urine Blood Trace-lysed H Urine Nitrate Negative Urine Bilirubin Small H Urine Urobilinogen 1.0 H Ur Leukocyte Esterase Negative Urine RBC 0 - 2 Urine WBC 0 - 2 Ur Epithelial Cells 0 - 2 Hyaline Casts 0 - 2 Assessment & Plan - Assessment and Plan (Free Text) Plan: Assessment Sepsis due to acute colitis associated with fecal impaction HTN DM carotid artery stenosis history of chronic constipation Plan Started patient on Zosyn pending blood cx, plans of surgery for disimpaction will follow clinically
[2016-11-25] MEDS: Piperacillin/Tazobact 3.375 gm 100 ML IVPB SCH ×3 (12:46→23:43)
[2016-11-25] MEDS: Tiotropium 18 mcg Cap For Inhalation IH SCH (12:47)
[2016-11-25] MEDS ORDERED: Simethicone 80 mg Chewtab PO PRN (18:26)
[2016-11-25] MEDS ORDERED: Morphine 2 mg/ml ISec IVP STA (18:28)
[2016-11-25] MEDS ORDERED: Lidocaine 2% Jelly (Uro-Jet) TOP ONE (21:58)
[2016-11-26] MEDS: Piperacillin/Tazobact 3.375 gm 100 ML IVPB SCH ×3 (06:24→17:38)
[2016-11-26 07:32] LABS: HEMOGLOBIN 11.5 gm/dL (12.0-16.0); MEAN CELL VOLUME 85.1 fL (80.0-105.0); MEAN CORPUSCULAR HEMOGLOBIN 28.6 pg (25.0-35.0); MEAN CORPUSCULAR HGB CONC 33.6 g/dl (31.0-37.0); MEAN PLATELET VOLUME 9.6 fl (7.0-11.0); RBC 4.02 10^6/uL (3.5-6.1); RED CELL DISTRIBUTION WIDTH 13.8 % (11.5-14.5); WHITE BLOOD COUNT 8.7 10^3/ul (4.5-11.0)
[2016-11-26 07:48] LABS: INR 0.99 (0.93-1.08); PARTIAL THROMBOPLASTIN TIME 28.2 Seconds (23.7-30.8); PROTHROMBIN TIME 10.7 Seconds (9.9-11.8)
[2016-11-26 07:51] LABS: ALB/GLOB RATIO 1.4 (1.1-1.8); ALT/SGPT 21 U/L (7-56); AST/SGOT 25 U/L (15-39); BLOOD UREA NITROGEN 18 mg/dL (7-21); CALCIUM 8.2 mg/dL (8.4-10.5); GFR AFRICAN-AMERICAN > 60; GFR NON-AFRICAN AMERICAN > 60
--- NOTE | 2016-11-26 08:34 | RAD ---
HISTORY: pre-op COMPARISON: 03/18/2014 FINDINGS: LUNGS: No active pulmonary disease. PLEURA: No significant pleural effusion identified, no pneumothorax apparent. CARDIOVASCULAR: Mild cardiomegaly. Surgical clips in the right side of the mediastinum OSSEOUS STRUCTURES: No significant abnormalities. VISUALIZED UPPER ABDOMEN: Normal. OTHER FINDINGS: None. IMPRESSION: No active disease.
--- NOTE | 2016-11-26 08:53 | CP.PCM.PN ---
Subjective - Date & Time of Evaluation Date of Evaluation: 11/26/16 Time of Evaluation: 08:00 - Subjective Subjective: seen in bed bowels are moving some still uncomfortable on iv abs for sepsis colitis by id trying not to do sedation for dis impaction Objective - Vital Signs/Intake and Output Vital Signs (last 24 hours): Temp Pulse Resp BP Pulse Ox 98.3 F 63 20 134/62 94 L 11/26/16 07:30 11/26/16 07:30 11/26/16 07:30 11/26/16 07:30 11/26/16 07:30 Intake and Output: 11/26/16 11/26/16 06:59 18:59 Intake Total 0 Output Total 925 Balance -925 - Medications Medications: Current Medications Acetaminophen (Tylenol 325mg Tab) 650 mg PO Q4H PRN PRN Reason: Pain, moderate (4-7) Last Admin: 11/25/16 22:37 Dose: 650 mg Albuterol/Ipratropium (Duoneb 3 Mg/0.5 Mg (3 Ml) Ud) 3 ml IH [id number] PRN PRN Reason: Shortness of Breath Amlodipine Besylate (Norvasc) 5 mg PO QAM [facility] Last Admin: 11/25/16 09:28 Dose: 5 mg Sodium Chloride (Sodium Chloride 0.9%) 1,000 mls @ 75 mls/hr IV .[id number] [facility] Last Admin: 11/25/16 23:00 Dose: 75 mls/hr Piperacillin Sod/Tazobactam Sod (Zosyn 3.375 In Ns 100ml) 100 mls @ 200 mls/hr IVPB Q6 [facility] PRN Reason: Protocol Stop: 12/02/16 12:01 Last Admin: 11/26/16 06:24 Dose: 200 mls/hr Losartan Potassium (Cozaar) 100 mg PO QAM [facility] Last Admin: 11/25/16 09:28 Dose: 100 mg Simethicone (Mylicon Chew Tab) 80 mg PO PCHS PRN PRN Reason: GI distress Last Admin: 11/25/16 18:43 Dose: 80 mg Tiotropium [place] (Spiriva) 18 mcg IH DAILY [facility] Last Admin: 11/25/16 12:47 Dose: 18 mcg - Labs Labs: 11/26/16 06:45 11/26/16 06:45 PT 10.7 Seconds (9.9-11.8) 11/26/16 06:45 INR 0.99 (0.93-1.08) 11/26/16 06:45 APTT 28.2 Seconds (23.7-30.8) 11/26/16 06:45 - Constitutional Appears: In Acute Distress - Head Exam Head Exam: ATRAUMATIC, NORMAL INSPECTION, NORMOCEPHALIC - ENT Exam ENT Exam: Mucous Membranes Moist - Neck Exam Neck Exam: Normal Inspection - Respiratory Exam Respiratory Exam: Decreased Breath Sounds, Clear to Ausculation Bilateral, NORMAL BREATHING PATTERN - Cardiovascular Exam Cardiovascular Exam: REGULAR RHYTHM - GI/Abdominal Exam GI & Abdominal Exam: Soft, Normal Bowel Sounds - Extremities Exam Extremities Exam: Normal Inspection - Neurological Exam Neurological Exam: Alert, CN II-XII Intact, Oriented x3 - Psychiatric Exam Psychiatric exam: Anxious, Normal Affect - Skin Skin Exam: Warm Assessment and Plan - Assessment and Plan (Free Text) Assessment: fecal impaction colitis sepsis dm htn urinary retention Plan: as per id gi surgery cont w/ meds checking labs wbca improving discussed w/ daughter at length will add tcu eval
--- NOTE | 2016-11-26 09:22 | CP.PCM.PN ---
Subjective - Date & Time of Evaluation Date of Evaluation: 11/26/16 Time of Evaluation: 08:00 - Subjective Subjective: General Surgery- Dr. Rodriguez Pt S&E at beside this AM. Started to have multiple BM overnight and this morning. Abdominal pain has significantly decreased. OOB and ambulating. Objective - Vital Signs/Intake and Output Vital Signs (last 24 hours): Temp Pulse Resp BP Pulse Ox 98.3 F 63 20 134/62 94 L 11/26/16 07:30 11/26/16 07:30 11/26/16 07:30 11/26/16 07:30 11/26/16 07:30 Intake and Output: 11/26/16 11/26/16 06:59 18:59 Intake Total 0 Output Total 925 Balance -925 - Medications Medications: Current Medications Acetaminophen (Tylenol 325mg Tab) 650 mg PO Q4H PRN PRN Reason: Pain, moderate (4-7) Last Admin: 11/25/16 22:37 Dose: 650 mg Albuterol/Ipratropium (Duoneb 3 Mg/0.5 Mg (3 Ml) Ud) 3 ml IH [id number] PRN PRN Reason: Shortness of Breath Amlodipine Besylate (Norvasc) 5 mg PO QAM [facility] Last Admin: 11/25/16 09:28 Dose: 5 mg Sodium Chloride (Sodium Chloride 0.9%) 1,000 mls @ 75 mls/hr IV .[id number] [facility] Last Admin: 11/25/16 23:00 Dose: 75 mls/hr Piperacillin Sod/Tazobactam Sod (Zosyn 3.375 In Ns 100ml) 100 mls @ 200 mls/hr IVPB Q6 [facility] PRN Reason: Protocol Stop: 12/02/16 12:01 Last Admin: 11/26/16 06:24 Dose: 200 mls/hr Losartan Potassium (Cozaar) 100 mg PO QAM [facility] Last Admin: 11/25/16 09:28 Dose: 100 mg Simethicone (Mylicon Chew Tab) 80 mg PO PCHS PRN PRN Reason: GI distress Last Admin: 11/25/16 18:43 Dose: 80 mg Tiotropium [place] (Spiriva) 18 mcg IH DAILY [facility] Last Admin: 11/25/16 12:47 Dose: 18 mcg - Labs Labs: 11/26/16 06:45 11/26/16 06:45 PT 10.7 Seconds (9.9-11.8) 11/26/16 06:45 INR 0.99 (0.93-1.08) 11/26/16 06:45 APTT 28.2 Seconds (23.7-30.8) 11/26/16 06:45 - Constitutional Appears: Well, No Acute Distress - Head Exam Head Exam: ATRAUMATIC - Eye Exam Eye Exam: EOMI - Neck Exam Neck Exam: Full ROM - Respiratory Exam Respiratory Exam: NORMAL BREATHING PATTERN. absent: Accessory Muscle Use - Cardiovascular Exam Cardiovascular Exam: REGULAR RHYTHM, +S1, +S2 - GI/Abdominal Exam GI & Abdominal Exam: Soft, Normal Bowel Sounds - Rectal Exam Rectal Exam: Hemorrhoids, Fecal Impaction - Neurological Exam Neurological Exam: Alert, Oriented x3 - Skin Skin Exam: Dry, Normal Color Assessment and Plan - Assessment and Plan (Free Text) Assessment: 81F with fecal impaction and pneumotosis coli s/p manual disimpaction x2 Plan: - advance to regular diet - pain control - OOB and ambulation - disimpaction under surgery cancelled due to multiple bowel movements. - No surgical intervention at this time. - will follow with GI for bowel regiment Discussed with Dr. Michael Aldrich PGY1
[2016-11-26] MEDS: Tiotropium 18 mcg Cap For Inhalation IH SCH (10:30)
[2016-11-26] MEDS: Sodium Chloride 0.9% 1,000 ML IV SCH (10:33)
[2016-11-26] MEDS: POLYETHYLENE GLYCOL 3350 17 GM/Dose PACKET PO SCH ×2 (11:09→17:38)
[2016-11-27] MEDS: Piperacillin/Tazobact 3.375 gm 100 ML IVPB SCH ×4 (02:45→18:11)
--- NOTE | 2016-11-27 07:45 | CP.PCM.PN ---
Subjective - Date & Time of Evaluation Date of Evaluation: 11/27/16 Time of Evaluation: 06:00 - Subjective Subjective: seen in bed w/ daughter still w/ multiple bm sludge no real bm yet eats a bit on iv abs as per id for her colitis some pain at times Objective - Vital Signs/Intake and Output Vital Signs (last 24 hours): Temp Pulse Resp BP Pulse Ox 98.3 F 70 20 124/53 L 94 L 11/26/16 07:30 11/26/16 10:34 11/26/16 07:30 11/26/16 10:34 11/26/16 07:30 Intake and Output: 11/27/16 11/27/16 06:59 18:59 Intake Total 1140 Output Total 600 Balance 540 - Medications Medications: Current Medications Acetaminophen (Tylenol 325mg Tab) 650 mg PO Q4H PRN PRN Reason: Pain, moderate (4-7) Last Admin: 11/26/16 11:12 Dose: 650 mg Albuterol/Ipratropium (Duoneb 3 Mg/0.5 Mg (3 Ml) Ud) 3 ml IH [id number] PRN PRN Reason: Shortness of Breath Amlodipine Besylate (Norvasc) 5 mg PO QAM [facility] Last Admin: 11/26/16 10:34 Dose: 5 mg Docusate Sodium (Colace) 100 mg PO BID [facility] Last Admin: 11/26/16 17:38 Dose: 100 mg Sodium Chloride (Sodium Chloride 0.9%) 1,000 mls @ 75 mls/hr IV .[id number] [facility] Last Admin: 11/26/16 10:33 Dose: 75 mls/hr Piperacillin Sod/Tazobactam Sod (Zosyn 3.375 In Ns 100ml) 100 mls @ 200 mls/hr IVPB Q6 [facility] PRN Reason: Protocol Stop: 12/02/16 12:01 Last Admin: 11/27/16 05:43 Dose: 200 mls/hr Losartan Potassium (Cozaar) 100 mg PO QAM [facility] Last Admin: 11/26/16 10:30 Dose: 100 mg Polyethylene Glycol (Miralax) 17 gm PO BID [facility] Last Admin: 11/26/16 17:38 Dose: 17 gm Simethicone (Mylicon Chew Tab) 80 mg PO [facility] PRN PRN Reason: GI distress Last Admin: 11/25/16 18:43 Dose: 80 mg Tiotropium [place] (Spiriva) 18 mcg IH DAILY [facility] Last Admin: 11/26/16 10:30 Dose: 18 mcg - Labs Labs: 11/26/16 06:45 11/26/16 06:45 PT 10.7 Seconds (9.9-11.8) 11/26/16 06:45 INR 0.99 (0.93-1.08) 11/26/16 06:45 APTT 28.2 Seconds (23.7-30.8) 11/26/16 06:45 - Constitutional Appears: No Acute Distress - Head Exam Head Exam: NORMAL INSPECTION, NORMOCEPHALIC - ENT Exam ENT Exam: Mucous Membranes Moist - Respiratory Exam Respiratory Exam: Decreased Breath Sounds, Clear to Ausculation Bilateral - Cardiovascular Exam Cardiovascular Exam: REGULAR RHYTHM - GI/Abdominal Exam GI & Abdominal Exam: Soft, Normal Bowel Sounds - Extremities Exam Extremities Exam: Normal Inspection - Neurological Exam Neurological Exam: Alert, Awake, CN II-XII Intact, Oriented x3 - Psychiatric Exam Psychiatric exam: Normal Affect - Skin Skin Exam: Warm Assessment and Plan - Assessment and Plan (Free Text) Assessment: fecal impaction w/ diarrhea colitis weakness urinary retenttion dm htn Plan: cont bowel regimen as per id w/ iv abs pt called for rec for neli vs tcu encouragement to get oob and eat if possible lots of questions from family checking labs meds tests cont iv abs as per id
[2016-11-27] MEDS ORDERED: Peg-Electrolyte Oral Soln 4L (Golytely) PO ONE (07:54)
--- NOTE | 2016-11-27 09:31 | CP.PCM.PN ---
Subjective - Date & Time of Evaluation Date of Evaluation: 11/27/16 Time of Evaluation: 09:27 - Subjective Subjective: General Surgery PGY [address] Rodriguez Patient seen and examined at bedside this morning. No acute events over night. Patient has had multiple loose, water bowel movements. She states she can not control it most of the time, "It just leaks out." Patient is tolerating her diet. She is currently not in any pain. Objective - Vital Signs/Intake and Output Vital Signs (last 24 hours): Temp Pulse Resp BP Pulse Ox 97.9 F 68 20 163/74 H 95 11/27/16 07:30 11/27/16 07:30 11/27/16 07:30 11/27/16 07:30 11/27/16 07:30 Intake and Output: 11/27/16 11/27/16 06:59 18:59 Intake Total 1140 Output Total 600 Balance 540 - Medications Medications: Current Medications Acetaminophen (Tylenol 325mg Tab) 650 mg PO Q4H PRN PRN Reason: Pain, moderate (4-7) Last Admin: 11/26/16 11:12 Dose: 650 mg Albuterol/Ipratropium (Duoneb 3 Mg/0.5 Mg (3 Ml) Ud) 3 ml IH [id number] PRN PRN Reason: Shortness of Breath Amlodipine Besylate (Norvasc) 5 mg PO QAM [facility] Last Admin: 11/26/16 10:34 Dose: 5 mg Docusate Sodium (Colace) 100 mg PO BID [facility] Last Admin: 11/26/16 17:38 Dose: 100 mg Sodium Chloride (Sodium Chloride 0.9%) 1,000 mls @ 75 mls/hr IV .[id number] [facility] Last Admin: 11/26/16 10:33 Dose: 75 mls/hr Piperacillin Sod/Tazobactam Sod (Zosyn 3.375 In Ns 100ml) 100 mls @ 200 mls/hr IVPB Q6 [facility] PRN Reason: Protocol Stop: 12/02/16 12:01 Last Admin: 11/27/16 05:43 Dose: 200 mls/hr Losartan Potassium (Cozaar) 100 mg PO QAM [facility] Last Admin: 11/26/16 10:30 Dose: 100 mg Polyethylene Glycol (Miralax) 17 gm PO BID [facility] Last Admin: 11/26/16 17:38 Dose: 17 gm Simethicone (Mylicon Chew Tab) 80 mg PO HS PRN PRN Reason: GI distress Last Admin: 11/25/16 18:43 Dose: 80 mg Tiotropium [place] (Spiriva) 18 mcg IH DAILY [facility] Last Admin: 11/26/16 10:30 Dose: 18 mcg - Labs Labs: 11/26/16 06:45 11/26/16 06:45 PT 10.7 Seconds (9.9-11.8) 11/26/16 06:45 INR 0.99 (0.93-1.08) 11/26/16 06:45 APTT 28.2 Seconds (23.7-30.8) 11/26/16 06:45 - Constitutional Appears: Non-toxic, No Acute Distress - Head Exam Head Exam: ATRAUMATIC, NORMOCEPHALIC - Eye Exam Eye Exam: EOMI - ENT Exam ENT Exam: Mucous Membranes Moist - Respiratory Exam Respiratory Exam: Clear to Ausculation Bilateral, NORMAL BREATHING PATTERN - Cardiovascular Exam Cardiovascular Exam: REGULAR RHYTHM, +S1, +S2 - GI/Abdominal Exam GI & Abdominal Exam: Soft, Normal Bowel Sounds. absent: Firm, Rigid, Tenderness - Psychiatric Exam Psychiatric exam: Normal Affect, Normal Mood - Skin Skin Exam: Dry, Intact, Normal Color, Warm Assessment and Plan - Assessment and Plan (Free Text) Assessment: 81 year old with fecal impaction Plan: Continue regular diet as tolerated. pain control OOB and ambulation No surgical intervention at this time due to multiple bowel movements. Will follow with GI for bowel regiment Will discuss with Dr. Michael Alan Eric PGY 1
[2016-11-27] MEDS: POLYETHYLENE GLYCOL 3350 17 GM/Dose PACKET PO SCH (10:56)
[2016-11-27] MEDS: Tiotropium 18 mcg Cap For Inhalation IH SCH (10:56)
--- NOTE | 2016-11-27 11:09 | CP.PCM.PN ---
Subjective - Date & Time of Evaluation Date of Evaluation: 11/27/16 Time of Evaluation: 10:10 - Subjective Subjective: Patient is having bowel movements, no fevers, less abdominal pain. Objective - Vital Signs/Intake and Output Vital Signs (last 24 hours): Temp Pulse Resp BP Pulse Ox 98.3 F 63 20 134/62 94 L 11/26/16 07:30 11/26/16 07:30 11/26/16 07:30 11/26/16 07:30 11/26/16 07:30 Intake and Output: 11/26/16 11/26/16 06:59 18:59 Intake Total 0 Output Total 925 Balance -925 - Medications Medications: Current Medications Acetaminophen (Tylenol 325mg Tab) 650 mg PO Q4H PRN PRN Reason: Pain, moderate (4-7) Last Admin: 11/25/16 22:37 Dose: 650 mg Albuterol/Ipratropium (Duoneb 3 Mg/0.5 Mg (3 Ml) Ud) 3 ml IH [id number] PRN PRN Reason: Shortness of Breath Amlodipine Besylate (Norvasc) 5 mg PO QAM [facility] Last Admin: 11/25/16 09:28 Dose: 5 mg Sodium Chloride (Sodium Chloride 0.9%) 1,000 mls @ 75 mls/hr IV .[id number] [facility] Last Admin: 11/25/16 23:00 Dose: 75 mls/hr Piperacillin Sod/Tazobactam Sod (Zosyn 3.375 In Ns 100ml) 100 mls @ 200 mls/hr IVPB Q6 [facility] PRN Reason: Protocol Stop: 12/02/16 12:01 Last Admin: 11/26/16 06:24 Dose: 200 mls/hr Losartan Potassium (Cozaar) 100 mg PO QAM [facility] Last Admin: 11/25/16 09:28 Dose: 100 mg Simethicone (Mylicon Chew Tab) 80 mg PO PCHS PRN PRN Reason: GI distress Last Admin: 11/25/16 18:43 Dose: 80 mg Tiotropium [place] (Spiriva) 18 mcg IH DAILY [facility] Last Admin: 11/25/16 12:47 Dose: 18 mcg - Labs Labs: 11/26/16 06:45 11/26/16 06:45 PT 10.7 Seconds (9.9-11.8) 11/26/16 06:45 INR 0.99 (0.93-1.08) 11/26/16 06:45 APTT 28.2 Seconds (23.7-30.8) 11/26/16 06:45 - Constitutional Appears: Non-toxic, No Acute Distress - Head Exam Head Exam: NORMAL INSPECTION - Neck Exam Neck Exam: absent: Meningismus - Respiratory Exam Respiratory Exam: Decreased Breath Sounds - Cardiovascular Exam Cardiovascular Exam: +S1, +S2 - GI/Abdominal Exam GI & Abdominal Exam: Soft. absent: Tenderness Assessment and Plan - Assessment and Plan (Free Text) Plan: Assessment Sepsis due to acute colitis associated with fecal impaction, clinically improving HTN DM carotid artery stenosis history of chronic constipation Plan continue Zosyn day 3; if tolerating solid foods, should be able to switch to PO Augmentin for another 3-5 days will follow clinically
--- NOTE | 2016-11-27 15:52 | RAD ---
HISTORY: constipation COMPARISON: 11/25/2015 FINDINGS: BOWEL: Normal. No obstruction. No free air. Constipation with fecal impaction BONES: Normal. OTHER FINDINGS: None. IMPRESSION: Fecal impaction
[2016-11-27] MEDS: Albuterol-Ipratrop 3 mg / 0.5 (3 ml) UD IH PRN (20:17)
[2016-11-28] MEDS: Piperacillin/Tazobact 3.375 gm 100 ML IVPB SCH (02:28)
[2016-11-28] MEDS: Albuterol-Ipratrop 3 mg / 0.5 (3 ml) UD IH PRN (07:28)
[2016-11-28 07:44] LABS: HEMOGLOBIN 11.4 gm/dL (12.0-16.0); MEAN CELL VOLUME 83.1 fL (80.0-105.0); MEAN CORPUSCULAR HEMOGLOBIN 27.9 pg (25.0-35.0); MEAN CORPUSCULAR HGB CONC 33.6 g/dl (31.0-37.0); MEAN PLATELET VOLUME 9.5 fl (7.0-11.0); RBC 4.08 10^6/uL (3.5-6.1); RED CELL DISTRIBUTION WIDTH 13.6 % (11.5-14.5); WHITE BLOOD COUNT 4.9 10^3/ul (4.5-11.0)
[2016-11-28 08:06] LABS: ALB/GLOB RATIO 1.3 (1.1-1.8); ALBUMIN 2.9 g/dL (3.0-4.8); ALT/SGPT 24 U/L (7-56); AST/SGOT 23 U/L (15-39); BLOOD UREA NITROGEN 5 mg/dL (7-21); CALCIUM 8.2 mg/dL (8.4-10.5); GFR AFRICAN-AMERICAN > 60; GFR NON-AFRICAN AMERICAN > 60
--- NOTE | 2016-11-28 08:29 | CP.PCM.PN ---
Subjective - Date & Time of Evaluation Date of Evaluation: 11/28/16 Time of Evaluation: 08:25 - Subjective Subjective: General Surgery PGY [address] Rodriguez Patient seen and examined at bedside this morning. No acute events overnight. Patient states she is still moving her bowels multiple times per hour with liquid stool. She has not had a solid BM yet. Patient is tolerating her diet. Her pain is well controlled. Denies fever, chills, nausea or vomiting. Objective - Vital Signs/Intake and Output Vital Signs (last 24 hours): Temp Pulse Resp BP Pulse Ox 98.5 F 73 20 137/63 100 11/28/16 07:40 11/28/16 07:40 11/28/16 07:40 11/28/16 07:40 11/28/16 07:40 Intake and Output: 11/28/16 11/28/16 06:59 18:59 Intake Total 320 200 Output Total 300 700 Balance 20 -500 - Medications Medications: Current Medications Acetaminophen (Tylenol 325mg Tab) 650 mg PO Q4H PRN PRN Reason: Pain, moderate (4-7) Last Admin: 11/26/16 11:12 Dose: 650 mg Albuterol/Ipratropium (Duoneb 3 Mg/0.5 Mg (3 Ml) Ud) 3 ml IH [id number] PRN PRN Reason: Shortness of Breath Last Admin: 11/28/16 07:28 Dose: 3 ml Amlodipine Besylate (Norvasc) 5 mg PO QAM [facility] Last Admin: 11/27/16 10:57 Dose: 5 mg Docusate Sodium (Colace) 100 mg PO BID [facility] Last Admin: 11/27/16 18:10 Dose: 100 mg Sodium Chloride (Sodium Chloride 0.9%) 1,000 mls @ 75 mls/hr IV .[id number] [facility] Last Admin: 11/26/16 10:33 Dose: 75 mls/hr Piperacillin Sod/Tazobactam Sod (Zosyn 3.375 In Ns 100ml) 100 mls @ 200 mls/hr IVPB Q6 [facility] PRN Reason: Protocol Stop: 12/02/16 12:01 Last Admin: 11/28/16 02:28 Dose: 200 mls/hr Losartan Potassium (Cozaar) [facility] Last Admin: 11/27/16 10:56 Dose: 100 mg Potassium Chloride (K-Dur 20 Meq Er Tab) 20 meq PO BRK [facility] Simethicone (Mylicon Chew Tab) 80 mg PO PCHS PRN PRN Reason: GI distress Last Admin: 11/25/16 18:43 Dose: 80 mg Tiotropium [place] (Spiriva) 18 mcg IH DAILY [facility] Last Admin: 11/27/16 10:56 Dose: 18 mcg - Labs Labs: 11/28/16 07:00 11/28/16 07:00 PT 10.7 Seconds (9.9-11.8) 11/26/16 06:45 INR 0.99 (0.93-1.08) 11/26/16 06:45 APTT 28.2 Seconds (23.7-30.8) 11/26/16 06:45 - Constitutional Appears: Non-toxic, No Acute Distress - Head Exam Head Exam: ATRAUMATIC, NORMOCEPHALIC - Eye Exam Eye Exam: EOMI - ENT Exam ENT Exam: Mucous Membranes Moist - Respiratory Exam Respiratory Exam: NORMAL BREATHING PATTERN. absent: Accessory Muscle Use, Respiratory Distress - Cardiovascular Exam Cardiovascular Exam: REGULAR RHYTHM - GI/Abdominal Exam GI & Abdominal Exam: Soft, Normal Bowel Sounds. absent: Distended, Firm, Guarding, Rigid, Tenderness - Neurological Exam Neurological Exam: Alert, Awake - Psychiatric Exam Psychiatric exam: Normal Affect, Normal Mood - Skin Skin Exam: Dry, Normal Color, Warm Assessment and Plan - Assessment and Plan (Free Text) Assessment: 81 yo F with fecal impaction and pneumatosis coli. Plan: Continue regular diet as tolerated. No need for surgical intervention at this time. Pain control OOB and ambulation Will follow with GI for bowel regiment. Will discuss with Dr. Michael Alan Eric PGY 1
--- NOTE | 2016-11-28 10:20 | RAD ---
HISTORY: fecal impaction COMPARISON: 11/27/2016 FINDINGS: BOWEL: Unremarkable bowel gas pattern. No evidence of bowel obstruction. No hepatic or splenic enlargement. No masses are identified. Moderate retained feces in the rectum. BONES: Osteoarthritis right hip. OTHER FINDINGS: None. IMPRESSION: No evidence of bowel obstruction. Retained feces in rectum.
[2016-11-28] MEDS: Tiotropium 18 mcg Cap For Inhalation IH SCH (10:31)
[2016-11-28] MEDS: Potassium Chloride 20 mEq ER Tab PO SCH (10:32)
[2016-11-28] MEDS ORDERED: Potassium Chloride 20 mEq ER Tab PO STA (10:40)
[2016-11-28] MEDS: Sodium Chloride 0.9% 1,000 ML IV SCH ×2 (12:00→23:00)
[2016-11-28] MEDS: Zinc Oxide Topical 40% Oint (Desitin) TOP PRN (17:00)
[2016-11-28] MEDS: PRAMOXINE 1% TOP SCH (17:00)
[2016-11-28] MEDS: Amoxicillin-Clav 875-125 mg Tab PO SCH (21:03)
[2016-11-29] MEDS: Zinc Oxide Topical 40% Oint (Desitin) TOP PRN (02:00)
[2016-11-29] MEDS: Albuterol-Ipratrop 3 mg / 0.5 (3 ml) UD IH PRN (07:20)
[2016-11-29 07:22] LABS: HEMOGLOBIN 12.1 gm/dL (12.0-16.0); MEAN CELL VOLUME 82.2 fL (80.0-105.0); MEAN CORPUSCULAR HEMOGLOBIN 28.3 pg (25.0-35.0); MEAN CORPUSCULAR HGB CONC 34.4 g/dl (31.0-37.0); MEAN PLATELET VOLUME 9.3 fl (7.0-11.0); RBC 4.28 10^6/uL (3.5-6.1); RED CELL DISTRIBUTION WIDTH 13.7 % (11.5-14.5); WHITE BLOOD COUNT 5.6 10^3/ul (4.5-11.0)
[2016-11-29 07:33] LABS: ALB/GLOB RATIO 1.4 (1.1-1.8); ALBUMIN 3.1 g/dL (3.0-4.8); ALT/SGPT 30 U/L (7-56); AST/SGOT 23 U/L (15-39); BLOOD UREA NITROGEN 5 mg/dL (7-21); CALCIUM 8.7 mg/dL (8.4-10.5); GFR AFRICAN-AMERICAN > 60; GFR NON-AFRICAN AMERICAN > 60
[2016-11-29] MEDS: Potassium Chloride 20 mEq ER Tab PO SCH (08:31)
--- NOTE | 2016-11-29 09:07 | PN ---
DATE: 11/28/2016 SUBJECTIVE: The patient is lying in bed. She is passing watery bowel movements. PHYSICAL EXAMINATION: VITAL SIGNS: Reveal temperature of 98.5, blood pressure of 137/63, and heart rate of 73. ABDOMEN: Soft with diffuse tenderness. No rebound. No guarding. LABORATORY DATA: Obstructive series from yesterday shows continued fecal impaction. CBC from this morning shows white blood cell count of 4.9 and hemoglobin of 11.4. Chemistry reveals potassium of 3.1. Otherwise, normal electrolytes. IMPRESSION: An 81-year-old female with persistent fecal impaction despite 2 liters of GoLYTELY, Dulcolax suppository, MiraLax and Colace. RECOMMENDATIONS: We will repeat an obstructive series of the abdomen today. If this shows continued fecal impaction, we will need manual disimpaction under anesthesia. We will discuss with Dr. Rodriguez and discuss with nursing surgical services director. Bob Obrien MD
[2016-11-29] MEDS: PRAMOXINE 1% TOP SCH (10:51)
[2016-11-29] MEDS: Amoxicillin-Clav 875-125 mg Tab PO SCH (10:52)
[2016-11-29] MEDS: Tiotropium 18 mcg Cap For Inhalation IH SCH (11:04)
--- NOTE | 2016-11-29 11:20 | CP.PCM.PN ---
Subjective - Date & Time of Evaluation Date of Evaluation: 11/29/16 Time of Evaluation: 10:20 - Subjective Subjective: Patient is still having loose stools and repeat xray still shows fecal impaction. No fevers overnight. Objective - Vital Signs/Intake and Output Vital Signs (last 24 hours): Temp Pulse Resp BP Pulse Ox 98.3 F 88 20 173/85 H 96 11/28/16 17:23 11/28/16 17:23 11/28/16 17:23 11/28/16 21:03 11/28/16 17:23 Intake and Output: 11/29/16 11/29/16 06:59 18:59 Intake Total 360 Output Total 2800 Balance -2440 - Medications Medications: Current Medications Acetaminophen (Tylenol 325mg Tab) 650 mg PO Q4H PRN PRN Reason: Pain, moderate (4-7) Last Admin: 11/29/16 02:06 Dose: 650 mg Albuterol/Ipratropium (Duoneb 3 Mg/0.5 Mg (3 Ml) Ud) 3 ml IH [id number] PRN PRN Reason: Shortness of Breath Last Admin: 11/29/16 07:20 Dose: 3 ml Alprazolam (Xanax) 0.25 mg PO Q6 PRN; Protocol PRN Reason: Anxiety Stop: 12/05/16 18:01 Last Admin: 11/29/16 02:06 Dose: 0.25 mg Amlodipine Besylate (Norvasc) 5 mg PO QAM [facility] Last Admin: 11/28/16 10:31 Dose: 5 mg Amoxicillin/Clavulanate Potassium (Augmentin 875 Mg-125 Mg Tab) 1 tab PO Q12 [facility] PRN Reason: Protocol Stop: 12/01/16 22:01 Last Admin: 11/28/16 21:03 Dose: 1 tab Clopidogrel Bisulfate (Plavix) 75 mg PO DAILY [facility] Docusate Sodium (Colace) 100 mg PO BID [facility] Last Admin: 11/28/16 17:00 Dose: 100 mg Furosemide (Lasix) 20 mg IVP Q12 [facility] Last Admin: 11/28/16 21:03 Dose: 20 mg Sodium Chloride (Sodium Chloride 0.9%) 1,000 mls @ 75 mls/hr IV .[id number] [facility] Last Admin: 11/28/16 23:00 Dose: 75 mls/hr Potassium Chloride (Potassium Chloride 10 Meq/100 Ml) 10 meq in 100 mls @ 100 mls/hr IVPB STAT STA Stop: 11/29/16 09:34 Losartan Potassium (Cozaar) 100 mg PO QAM [facility] Last Admin: 11/28/16 10:31 Dose: 100 mg Petrolatum (Desitin Maximum Strength Topical 40% Oint) 0 gm TOP Q4H PRN PRN Reason: Rash Last Admin: 11/29/16 02:00 Dose: 1 applic Pramoxine HCl (Proctofoam) 0 gm TOP TID [facility] Last Admin: 11/28/16 17:00 Dose: 1 applic Simethicone (Mylicon Chew Tab) 80 mg PO PCHS PRN PRN Reason: GI distress Last Admin: 11/25/16 18:43 Dose: 80 mg Tiotropium [place] (Spiriva) 18 mcg IH DAILY [facility] Last Admin: 11/28/16 10:31 Dose: 18 mcg - Labs Labs: 11/29/16 07:00 11/29/16 07:00 PT 10.7 Seconds (9.9-11.8) 11/26/16 06:45 INR 0.99 (0.93-1.08) 11/26/16 06:45 APTT 28.2 Seconds (23.7-30.8) 11/26/16 06:45 - Constitutional Appears: Non-toxic, No Acute Distress - Head Exam Head Exam: NORMAL INSPECTION - Neck Exam Neck Exam: absent: Meningismus - Respiratory Exam Respiratory Exam: Decreased Breath Sounds - Cardiovascular Exam Cardiovascular Exam: +S1, +S2 - GI/Abdominal Exam GI & Abdominal Exam: Soft. absent: Tenderness Assessment and Plan - Assessment and Plan (Free Text) Plan: Assessment Sepsis due to acute colitis associated with fecal impaction HTN DM carotid artery stenosis history of chronic constipation Plan continue Zosyn day 5; patient is kept NPO again and patient may need manual disimpaction under anesthesia - will await results of this planned procedure prior to switching to PO antibiotics will continue to follow clinically
[2016-11-29] MEDS ORDERED: Propofol 10 mg/ml Inj (20 ML) ONE (11:24)
[2016-11-29] MEDS ORDERED: Lidocaine 1% Inj (20ml) ONE ×2 (11:25→11:28)
[2016-11-29] MEDS ORDERED: Bupivacaine 0.5% Inj(30mL) ONE (11:27)
[2016-11-29] MEDS ORDERED: Phenylephrine 10 mg/ml Inj ONE (11:31)
[2016-11-29] MEDS ORDERED: Lidocaine 2% Jelly (Uro-Jet) ONE (11:59)
[2016-11-29] MEDS ORDERED: Piperacillin/Tazobact 2.25gm 2.25 GM/100 ML BAG IVPB SCH (12:00)
--- NOTE | 2016-11-29 12:19 | CARD ---
APPROVED REPORT EKG Measurement Heart [id number] <Conclusion> Normal sinus rhythm Normal ECG
[2016-11-29] MEDS ORDERED: ePHEDrine 50 mg/ml Inj ONE (12:22)
[2016-11-29] MEDS ORDERED: Lidocaine 2% Jelly (Uro-Jet) TOP ONE (12:51)
[2016-11-29 13:10] VITALS: O2SAT 96
--- NOTE | 2016-11-29 13:46 | PCM.SURG1 ---
Surgeon's Initial Post Op Note - Surgeon's Notes Surgeon: Dr. Rodriguez Prop Sawyer: Dr. Aldrich PGY1, Dr. Reyes PGY1, Jeronimo POST, [place] POST Pre-Operative Diagnosis: Fecal impaction Operative Findings: hard stool in rectum Post-Operative Diagnosis: same Operation Performed: fecal disimpaction with enema and rigid sigmoidoscopy Specimen/Specimens Removed: none Estimated Blood Loss: EBL {In ML}: 0 Post-Op Condition: Good Date of Surgery/Procedure: 11/29/16 Time of Surgery/Procedure: 12:00
--- NOTE | 2016-11-30 09:22 | PN ---
DATE: 11/28/2016 SUBJECTIVE: The patient is in bed, in no acute distress. The patient was seen early this morning in 567, bed 2, doing well. The patient's daughter is at the bedside, who states the patient is doing well. PHYSICAL EXAMINATION: VITAL SIGNS: Temperature is 98, blood pressure is 130/60, and respiratory rate of 16. HEENT: Unremarkable. NECK: Supple. HEART: Normal S1 and S2. LUNGS: Decreased breath sounds. ABDOMEN: Soft and nontender. LABORATORY DATA: Reveals a white count of 4.9, hemoglobin of 11, and platelets of 173. Coagulation is noted. BUN of 5, creatinine of 0.6, and urinalysis is noted. Microbiology, blood cultures are negative. Urine cultures are negative. Abdominal x-ray is noted. No evidence of bowel obstruction. Review of microbiology reveals cultures are negative. Review of the orders reveals the patient to be on Zosyn. ASSESSMENT AND PLAN: An 81-year-old female seen earlier in 567, bed #2 with sepsis due to acute colitis associated with fecal impaction improving, hypertension, and diabetes, day number 4 of Zosyn *------* associated with fecal impaction. We will discontinue the Zosyn as per Dr. Alberto's recommendation and switch to p.o. Augmentin for 3 days. Umair Stovall MD
--- NOTE | 2016-11-30 11:43 | PN ---
DATE: 11/29/2016 SUBJECTIVE: The patient is seen in the recovery room, awake, alert status post manual disimpaction of a large fecal impaction under anesthesia. PHYSICAL EXAMINATION: GENERAL: She is awake, alert, and comfortable. VITAL SIGNS: Reveal a temperature of 98.2, blood pressure 170/58, heart rate is 76. ABDOMEN: Soft, nontender. LABORATORY DATA: Reveal hemoglobin 12.1, white blood cell count 5.6. Chemistries reveal potassium 3.5. IMPRESSION: This is an 81-year-old female admitted to the hospital with a hard fecal impaction, which we were unable to clear despite 2 gallons of GoLYTELY, MiraLax suppositories, who underwent manual disimpaction under anesthesia. RECOMMENDATIONS: 1. Continue MiraLax 17 g b.i.d. 2. Continue Colace a 100 mg twice a day. Note: The patient did have pneumatosis on CAT scan, which I felt was secondary to a ulcer and proctitis from her fecal impaction. She has not had any peritoneal signs. Bob Obrien MD cc:
--- NOTE | 2016-11-30 11:54 | DS ---
HISTORY OF PRESENT ILLNESS: She is supposed to go for a disimpaction of her fecal impaction with surgery and she is refusing. She still needs to be in the hospital for IV fluids and care, so I am going to try and get it to the TCU today. We can continue with the IV fluids and treatment until she gets her bowels cleaned out. She is on Augmentin, Colace, zinc oxide, Dulcolax, DuoNebs, potassium, Lasix IV, Mylicon, Norvasc, potassium replacement, IV fluids, Spiriva, Tylenol, and Xanax. PHYSICAL EXAMINATION: VITAL SIGNS: 98.3 temperature, 173/85 blood pressure, 20 respiratory rate, 96% O2 saturation on room air. HEENT: Head is atraumatic and normocephalic. Throat is moist. HEART: Regular rate. LUNGS: Clear to auscultation. NECK: Supple. ABDOMEN: Soft. Positive bowel sounds, nontender. No guarding, no rebound. No CVA tenderness. EXTREMITIES: Have no edema. LABORATORY DATA: She has a 140 sodium, potassium is 3.1 and replaced with potassium; 5.6 white count, 12.1 hemoglobin, and 198,000 platelets. ASSESSMENT AND PLAN: She is being seen by surgery, GI and infectious disease. We will continue with aggressive treatment and care. I am hoping to get her to TCU today, because she is refusing further fecal disimpaction by surgery and we could watch her there and do it there and it is also recommended by physical therapy and she has been in the hospital for constipation, fecal impaction, sepsis, acute colitis, diabetes, and hypertension. Yosi Yepez DO
[2016-11-30 11:55] VITALS: BP 138/71; PULSE 87; RESP 20; TEMP 98.6
--- NOTE | 2016-12-02 09:48 | PN ---
SUBJECTIVE: I saw her this morning in bed resting comfortably with daughters present in the blake chair next to her. She is still having lots of watery stools. She is eating some. She is on IV antibiotics and IV fluids. No abdominal pain, chest pain or shortness of breath. She is very uncomfortable with persistent diarrhea. PHYSICAL EXAMINATION: VITAL SIGNS: She has 98.5 temp, 73 of pulse, 137/63 blood pressure, 20 of respiratory rate and 100% O2 sat on room air. HEENT: Head is atraumatic and normocephalic. Throat is moist. NECK: Supple. CARDIOPULMONARY: Regular rate. LUNGS: Decreased breath sounds, but clear. ABDOMEN: Soft and nontender. Positive bowel sounds. No guarding, no rebound, no CVA tenderness. EXTREMITIES: No edema. LABORATORY DATA: She has 4.9 white count, 11.4 hemoglobin, 33.9 hematocrit, 173 platelets. INR is 0.99. She has 140 sodium, potassium is 3.1 as basal potassium this morning. BUN is 5, creatinine 0.6, 50. Sugar is 77, calcium is 8.2, total bili is 0.78, AST is 23, ALT is 24, alk phos is 49, total protein is 5.3. urine is small. MEDICATIONS: She is currently on Colace, Cozaar, DuoNebs, potassium because potassium is low, Mylicon, Norvasc, IV fluids at 75 mL an hour, Spiriva, Tylenol and Zosyn IV. ASSESSMENT AND PLAN: She is being seen by Infectious Disease, Surgery and GI, Dr. Obrien, I do not see any notes. The x-ray showed fecal impaction yesterday. She is still on IV antibiotics. She has multiple issues going on besides fecal impaction with diarrhea, hypertension, diabetes, colitis, sepsis. I am hoping to get her to TCU today for physical therapy, IV antibiotics, IV fluids and abdominal care for the intestines with GI and surgery to help with disimpaction of the fecal impaction. We will discuss with the case management. Yosi Yepez DO CLA[place]TE
--- NOTE | 2016-12-02 10:16 | PN ---
DATE: 11/28/2016 SUBJECTIVE: The patient is lying in bed. She is passing watery bowel movements. PHYSICAL EXAMINATION: VITAL SIGNS: Reveal temperature of 98.5, blood pressure of 137/63, and heart rate of 73. ABDOMEN: Soft with diffuse tenderness. No rebound. No guarding. LABORATORY DATA: Obstructive series from yesterday shows continued fecal impaction. CBC from this morning shows white blood cell count of 4.9 and hemoglobin of 11.4. Chemistry reveals potassium of 3.1. Otherwise, normal electrolytes. IMPRESSION: An 81-year-old female with persistent fecal impaction despite 2 liters of GoLYTELY, Dulcolax suppository, MiraLax and Colace. RECOMMENDATIONS: We will repeat an obstructive series of the abdomen today. If this shows continued fecal impaction, we will need manual disimpaction under anesthesia. We will discuss with Dr. Rodriguez and discuss with surgical garment inspector. Bob Obrien MD
--- NOTE | 2016-12-09 08:08 | OP ---
PROCEDURE DATE: 11/29/2016 PREOPERATIVE DIAGNOSIS: Rule out rectal fissure and constipation with impacted fecal bolus. POSTOPERATIVE DIAGNOSIS: Rule out rectal fissure and constipation with impacted fecal bolus without a fistula. OPERATION: Examination under anesthesia, sigmoidoscopy and manual disimpaction. DESCRIPTION OF PROCEDURE: In the operating room, the patient was identified, name of the procedure, laterality, and my code and consent. The patient was placed in lithotomy. The area was prepped and draped. The area was numbed with Xylocaine and injected with Marcaine 0.25% with epi 1:100,000. The rectal exam was unremarkable. Eventually, sigmoidoscopy was performed to about 15 cm was unremarkable. The anal ring was intact. Good sphincter tone. There was a rectal bolus of stool that was manually disimpacted many times, cleaned and irrigated with saline and I think to good effect. There was no other pathology found. The patient was taken to the recovery room in good condition. Sponge and needle counts were correct. Yong Rodriguez MD
== END 2016-11-29 19:23 | DRG 872 ==
LOC: ED 15:20 → ERH 20:30 → 5RNO 23:31 → OBSVTOIN 11-25 09:33
PROVIDERS: ADMIT Family Medicine; ATTEND Family Medicine
PROC: 0DCP8ZZ Extirpation of Matter from Rectum, Via Natural or Artificial Opening Endoscopic (ICD-10-PCS; principal; 2016-11-29 12:00)
DX: A41.9 Sepsis, unspecified organism (principal); E11.9 Type 2 diabetes mellitus without complications; I65.29 Occlusion and stenosis of unspecified carotid artery; I10 Essential (primary) hypertension; K52.9 Noninfective gastroenteritis and colitis, unspecified; K56.41 Fecal impaction; R33.9 Retention of urine, unspecified; Z79.02 Long term (current) use of antithrombotics/antiplatelets; Z79.899 Other long term (current) drug therapy; Z85.118 Personal history of other malignant neoplasm of bronchus and lung; Z87.891 Personal history of nicotine dependence; Z98.49 Cataract extraction status, unspecified eye; Z88.6 Allergy status to analgesic agent; Z88.5 Allergy status to narcotic agent; Z88.8 Allergy status to other drugs, medicaments and biological substances; R40.2412 Glasgow coma scale score 13-15, at arrival to emergency department; Z86.010 Personal history of colon polyps; K62.89 Other specified diseases of anus and rectum; K63.89 Other specified diseases of intestine; Z90.710 Acquired absence of both cervix and uterus

== ENCOUNTER 2016-11-29 19:23 | Inpatient (IN) | payer OTHER, MEDICAID ==
[2016-11-29] MEDS ORDERED: Simethicone 80 mg Chewtab PO PRN (19:55)
[2016-11-29] MEDS: Amoxicillin-Clav 875-125 mg Tab PO SCH (22:49)
[2016-11-29] MEDS: Sodium Chloride 0.9% 1,000 ML IV SCH (22:55)
[2016-11-30] MEDS: Piperacillin/Tazobact 2.25gm 2.25 GM/100 ML BAG IVPB SCH ×3 (06:18→12:46)
[2016-11-30] MEDS: Hydrocortisone-Pramoxine 1%-1% Foam(10 gm) TOP SCH ×3 (10:56→18:12)
[2016-11-30] MEDS: Tiotropium 18 mcg Cap For Inhalation IH SCH (10:57)
--- NOTE | 2016-11-30 11:02 | CP.PCM.PN ---
Subjective - Date & Time of Evaluation Date of Evaluation: 11/30/16 Time of Evaluation: 10:59 - Subjective Subjective: General Surgery Progress Note: Resident: Mateus Attending: Michael HPI: Patient seen and examined at bedside. Patient doing well with no complaints at this time. Ramona diet. +flatus/+BM. Denies N/V/D/C/F/CP/SOB Objective - Vital Signs/Intake and Output Vital Signs (last 24 hours): Temp Pulse Resp BP Pulse Ox 98.5 F 84 20 100/54 L 93 L 11/30/16 06:00 11/30/16 06:00 11/30/16 06:00 11/30/16 06:00 11/30/16 06:00 Intake and Output: 11/30/16 11/30/16 06:59 18:59 Output Total 2700 Balance -2700 - Medications Medications: Current Medications Acetaminophen (Tylenol 325mg Tab) 650 mg PO Q4H PRN PRN Reason: mild pain 4-7 Albuterol/Ipratropium (Duoneb 3 Mg/0.5 Mg (3 Ml) Ud) 3 ml IH [id number] PRN PRN Reason: sob Alprazolam (Xanax) 0.25 mg PO Q6 PRN; Protocol PRN Reason: Anxiety Stop: 12/07/16 00:01 Amlodipine Besylate (Norvasc) 5 mg PO QAM [facility] Amoxicillin/Clavulanate Potassium (Augmentin 875 Mg-125 Mg Tab) 1 tab PO Q12 [facility] PRN Reason: Protocol Last Admin: 11/29/16 22:49 Dose: 1 tab Clopidogrel Bisulfate (Plavix) 75 mg PO DAILY [facility] Docusate Sodium (Colace) 100 mg PO BID [facility] Hydrocortisone/Pramoxine (Proctofoam) 1 gm TOP TID [facility] Piperacillin Sod/Tazobactam Sod (Zosyn 2.25 Gm In 0.9% 100 Ml) 2.25 gm in 100 mls @ 100 mls/hr IVPB Q6 [facility] PRN Reason: Protocol Stop: 12/07/16 00:01 Last Admin: 11/30/16 06:20 Dose: 100 mls/hr Sodium Chloride (Sodium Chloride 0.9%) 1,000 mls @ 75 mls/hr IV .[id number] [facility] Last Admin: 11/29/16 22:55 Dose: 75 mls/hr Losartan Potassium (Cozaar) 100 mg PO QAM [facility] Petrolatum (Desitin Maximum Strength Topical 40% Oint) 1 gm TOP Q4H PRN PRN Reason: Rash Simethicone (Mylicon Chew Tab) 80 mg PO PCHS PRN PRN Reason: GI distress Tiotropium [place] (Spiriva) 18 mcg IH DAILY [facility] - Constitutional Appears: No Acute Distress - Head Exam Head Exam: NORMAL INSPECTION - ENT Exam ENT Exam: Mucous Membranes Moist - Neck Exam Neck Exam: Normal Inspection - Respiratory Exam Respiratory Exam: Clear to Ausculation Bilateral - Cardiovascular Exam Cardiovascular Exam: REGULAR RHYTHM - GI/Abdominal Exam GI & Abdominal Exam: Soft. absent: Distended, Tenderness - Neurological Exam Neurological Exam: Alert, Awake, Oriented x3 Assessment and Plan - Assessment and Plan (Free Text) Assessment: 81 y/o WF s/p disimpaction in OR * Clear for d/c from surgical standpoint * Discussed with Dr. Michael Ignacio PGY-1
[2016-11-30 12:07] VITALS: BMI 22.8
[2016-11-30] MEDS: Sodium Chloride 0.9% 1,000 ML IV SCH ×2 (12:55→23:00)
--- NOTE | 2016-11-30 16:26 | CP.PCM.CON ---
History of Present Illness - History of Present Illness History of Present Illness: 81 year old female with PMH of HTN, DM, carotid artery stenosis, history of chronic constipation was initially admitted in [facility] because of abdominal pain and was found to have fecal impaction. She underwent rigid sigmoidoscopy and disimpaction and is now better. She is transferred to [facility] for continued medical therapy and physical rehab. Infectious diseases consult is requested for further antibiotic management. Currently the patient is feeling better, ate her breakfast with some abdominal discomfort for a few minutes and then got better. She denies diarrhea, no vomiting, no fever or chills, no headache or dizziness, no chest pain, no SOB, no cough or rhinorrhea , no sore throat, no dysphagia. Review of Systems - Review of Systems All systems: reviewed and no additional remarkable complaints except (as per HPI ) Past Patient History - Tetanus Immunizations Tetanus Immunization: Unknown - Past Social History Smoking Status: Former Smoker - CARDIAC Hx Cardiac Disorders: Yes Hx Angina: No Hx Cardia Arrhythmia: No Hx Circulatory Problems: No Hx Congestive Heart Failure: No Hx Heart Murmur: No Hx Heart Transplant: No Hx Hypercholesterolemia: Yes Hx Hypertension: Yes Hx Internal Defibrillator: No Hx Mitral Valve Prolapse: Yes Hx Pacemaker: No Hx Peripheral Edema: No Hx Peripheral Vascular Disease: No - PULMONARY Hx Respiratory Disorders: Yes Hx Asthma: No Hx Bronchitis: No Hx Chronic Obstructive Pulmonary Disease (COPD): Yes Hx Emphysema: No Hx Pneumonia: Yes Hx Respiratory Aspiration: No Hx Respiratory Tract Infection: No Hx Sleep Apnea: No Hx Tuberculosis: No Other/Comment: Pt had right lung removved. - NEUROLOGICAL Hx Neurological Disorder: Yes Hx Alzheimer's Disease: No HX Cerebrovascular Accident: No Hx Dementia: Yes Hx Dizziness: No Hx Meningitis: No Hx Migraine: No Hx Parkinson's Disease: No Hx Seizures: No Hx Transient Ischemic Attacks (TIA): No - HEENT Hx Cataracts: Yes Hx Deafness: Yes - RENAL Hx Kidney Stones: Yes - ENDOCRINE/METABOLIC Hx Endocrine Disorders: Yes Hx Diabetes Mellitus Type 1: Yes - HEMATOLOGICAL/ONCOLOGICAL Hx Blood Disorders: No Hx AIDS: No Hx Anemia: No Hx Cancer: No Hx Chemotherapy: No Hx Cirrhosis: No Hx Hepatitis A: No Hx Hepatitis B: No Hx Hepatitis C: No Hx Human Immunodeficiency Virus (HIV): No Hx Metastesis: No Hx Shingles: No Hx Unexplained Bleeding: No - MUSCULOSKELETAL/RHEUMATOLOGICAL Hx Falls: No - GASTROINTESTINAL Hx Gastrointestinal Disorders: Yes - GENITOURINARY/GYNECOLOGICAL Hx Genitourinary Disorders: Yes Hx Reproductive Disorders: No - PSYCHIATRIC Hx Anxiety: Yes Hx Substance Use: No - SURGICAL HISTORY Hx Amputation: Yes (lung and Hysterectomy) Hx Cardiac Catheterization: No Hx Coronary Stent: No - ANESTHESIA Hx Anesthesia Reactions: No Hx Malignant Hyperthermia: No Meds Allergies/Adverse Reactions: Allergies Allergy/AdvReac Type Severity Reaction Status Date / Time fluticasone Allergy REDNESS Verified 11/24/16 15:33 [From Advair Diskus] oxycodone [From Percocet] Allergy REDNESS Verified 11/24/16 15:33 salmeterol Allergy REDNESS Verified 11/24/16 15:33 [From Advair Diskus] fluticasone furoate AdvReac REDNESS Verified 11/24/16 15:33 [From Breo Ellipta] vilanterol AdvReac REDNESS Verified 11/24/16 15:33 [From Breo Ellipta] - Medications Medications: Current Medications Acetaminophen (Tylenol 325mg Tab) 650 mg PO Q4H PRN PRN Reason: mild pain 4-7 Albuterol/Ipratropium (Duoneb 3 Mg/0.5 Mg (3 Ml) Ud) 3 ml IH [id number] PRN PRN Reason: sob Alprazolam (Xanax) 0.25 mg PO Q6 PRN; Protocol PRN Reason: Anxiety Stop: 12/07/16 00:01 Amlodipine Besylate (Norvasc) 5 mg PO QAM [facility] Amoxicillin/Clavulanate Potassium (Augmentin 875 Mg-125 Mg Tab) 1 tab PO Q12 [facility] PRN Reason: Protocol Last Admin: 11/29/16 22:49 Dose: 1 tab Clopidogrel Bisulfate (Plavix) 75 mg PO DAILY [facility] Docusate Sodium (Colace) 100 mg PO BID FARIDEH Hydrocortisone/Pramoxine (Proctofoam) 1 gm TOP TID FARIDEH Piperacillin Sod/Tazobactam Sod (Zosyn 2.25 Gm In 0.9% 100 Ml) 2.25 gm in 100 mls @ 100 mls/hr IVPB Q6 FARIDEH PRN Reason: Protocol Stop: 12/07/16 00:01 Last Admin: 11/30/16 06:18 Dose: 100 mls/hr Sodium Chloride (Sodium Chloride 0.9%) 1,000 mls @ 75 mls/hr IV .[id number] [facility] Last Admin: 11/29/16 22:55 Dose: 75 mls/hr Losartan Potassium (Cozaar) 100 mg PO QAM [facility] Petrolatum (Desitin Maximum Strength Topical 40% Oint) 1 gm TOP Q4H PRN PRN Reason: Rash Simethicone (Mylicon Chew Tab) 80 mg PO PCHS PRN PRN Reason: GI distress Tiotropium Dora (Spiriva) 18 mcg IH DAILY [facility] Physical Exam - Constitutional Appears: Non-toxic, No Acute Distress - Head Exam Head Exam: NORMAL INSPECTION - ENT Exam ENT Exam: Mucous Membranes Moist - Neck Exam Neck exam: Negative for: Lymphadenopathy, Meningismus - Respiratory Exam Respiratory Exam: Decreased Breath Sounds - Cardiovascular Exam Cardiovascular Exam: +S1, +S2 - GI/Abdominal Exam GI & Abdominal Exam: Soft. absent: Tenderness Results - Vital Signs Recent Vital Signs: Last Vital Signs Temp 99.6 F 11/29/16 20:04 Pulse 83 11/29/16 20:04 Resp 16 11/29/16 20:04 BP 140/70 11/29/16 20:04 Pulse Ox Assessment & Plan - Assessment and Plan (Free Text) Plan: Assessment Sepsis due to acute colitis associated with fecal impaction S/P rigid sigmoidoscopy and disimpaction POD #1 HTN DM carotid artery stenosis history of chronic constipation Plan will switch to PO Augmentin for a few more days and will monitor clinically
--- NOTE | 2016-12-01 04:14 | HP ---
HISTORY OF PRESENT ILLNESS: She was dressed in a hospital and she was transferred to the nutritional care unit for physical therapy and care before she went home. Yesterday, she had a fecal impaction procedure removal with the surgery under anesthesia because of her very difficult constipation, but she did well and she is feeling a lot better, sitting in her room with her daughter right now. She is an 81-year-old female with abdominal pain, status post fecal impaction removal under anesthesia, now she is here for IV antibiotics for colitis and physical therapy. She is moving her bowels and are normal. No more loose diarrhea. She also had urinary retention. PAST MEDICAL HISTORY: Bloating, constipation, change in urinary stream, colitis, diabetes, hypertension, and presently she is septic. She had a eye surgery, cataracts. Constipation history. SOCIAL HISTORY: She was a former smoker. No alcohol. No drugs. ALLERGIES: SHE HAS ALLERGES TO FLUTICASONE, OXYCODONE, SALMETEROL, AND VILANTEROL. MEDICATIONS: She is currently on: 1. Amoxicillin. 2. Augmentin. 3. Colace. 4. Cozaar. 5. Desitin. 6. DuoNeb. 7. Mylicon. 8. Norvasc. 9. Plavix. 10. ProctoFoam. 11. IV fluids. 12. Spiriva. 13. Tylenol. 14. Xanax. 15. Zosyn IV. PHYSICAL EXAMINATION VITAL SIGNS: She has 98.5 temp, 72 pulse, 16 respiratory rate, 130/60 blood pressure, and 90% O2 sat on room air. GENERAL: Not in any distress at this time. HEENT: Head is atraumatic and normocephalic. Throat is moist. NECK: Supple. HEART: Regular rate. LUNGS: Decreased breath sounds with clear to auscultation. ABDOMEN: Soft and nontender. Positive bowel sounds. No guarding. No rebound. No CVA tenderness. EXTREMITIES: No edema. NEUROLOGIC: She is alert and oriented x3. Cranial nerves II through XII grossly intact. GCS is 15. Normal affect. SKIN: Warm and dry. She is quite comfortable now, status post disimpaction under anesthesia. LABORATORY DATA: Pending. IMPRESSION AND PLAN: She did have consults with her infectious disease, GI, and surgery. She is here for physical therapy, status post fecal impaction. She has sepsis, colitis, diabetes, and hypertension. Discussed at length with the daughter and answered many questions. Yosi Yepez DO
[2016-12-01] MEDS: Albuterol-Ipratrop 3 mg / 0.5 (3 ml) UD IH PRN (07:29)
[2016-12-01 08:25] LABS: HEMOGLOBIN 12.3 gm/dL (12.0-16.0); MEAN CELL VOLUME 84.3 fL (80.0-105.0); MEAN CORPUSCULAR HGB CONC 33.2 g/dl (31.0-37.0); MEAN PLATELET VOLUME 9.4 fl (7.0-11.0); RBC 4.4 10^6/uL (3.5-6.1)
[2016-12-01 08:56] LABS: ALB/GLOB RATIO 1.2 (1.1-1.8); ALBUMIN 3.2 g/dL (3.0-4.8); ALT/SGPT 24 U/L (7-56); AST/SGOT 23 U/L (15-39); BLOOD UREA NITROGEN 5 mg/dL (7-21); CALCIUM 9.1 mg/dL (8.4-10.5); GFR AFRICAN-AMERICAN > 60; GFR NON-AFRICAN AMERICAN > 60
[2016-12-01] MEDS: Amoxicillin-Clav 875-125 mg Tab PO SCH ×2 (10:01→21:37)
[2016-12-01] MEDS: Tiotropium 18 mcg Cap For Inhalation IH SCH (10:03)
[2016-12-01] MEDS: Hydrocortisone-Pramoxine 1%-1% Foam(10 gm) TOP SCH ×4 (10:07→20:40)
[2016-12-01] MEDS: Sodium Chloride 0.9% 1,000 ML IV SCH ×2 (11:25→21:37)
--- NOTE | 2016-12-02 01:36 | CON ---
DATE: 12/01/2016 HISTORY OF PRESENT ILLNESS: I examined Ms. Flores this morning at the request of Dr. Johansen. Note that this is a patient of Dr. Bob Obrien who is currently on vacation. The patient is an 81-year-old white female with past medical history of hypertension, diabetes, coronary artery disease, admitted with complaints of severe abdominal pain and distention due to fecal impaction. I discussed this case with Dr. Obrien before he left on Friday. The patient went to the operating room for relief of the impaction on Friday with good results. She is currently in TRCU. She is currently making progress. At the current time point, the patient denies abdominal pain. She did have a very small bowel moment. There is no nausea, vomiting, rectal bleeding, or hematemesis. I reviewed this case with the patient's daughter who was in the room. PHYSICAL EXAMINATION VITAL SIGNS: I reviewed this patient's vital sings. HEENT: Noncontributory. LUNGS: Decreased breath sounds, basilar. HEART: Irregular rhythm. ABDOMEN: Soft. No tenderness elicited, however, there appeared to be stool in the area of the left lower quadrant on exam. LABORATORY DATA: There is no current laboratory data in [facility]. ASSESSMENT: This is a patient here for complaints of abdominal pain secondary to fecal impaction, resolved by the surgical service. The patient appears to be making progress. She has no major complaints. She is tolerating meals with no problem. At the current time point, review of orders indicate she is on Colace as well as Mylicon chewable tablets.. We would suggest MiraLAX to be taken at least 4 to 7 days per week. The patient also has been encouraged to increase her p.o. fluid intake. Periodically if needed, glycerin suppository may help in this kind of situation with a colonic motility disorder. These options were reviewed with the patient's daughter. Clinically, the patient appears to be doing okay on the current therapeutic regimen. We suggest the latter recommendations. Dietary advance as per surgical service. The patient will be following up with Dr. Obrien after he returns from his vacation. Uday Michel DO, PhD [place]
[2016-12-02] MEDS: Sodium Chloride 0.9% 1,000 ML IV SCH ×3 (02:11→14:15)
--- NOTE | 2016-12-02 02:53 | PN ---
SUBJECTIVE: I saw Yudith resting comfortably in bed. Family is present. She tells me she is having some abdominal pain from time to time. She is eating. No nausea or vomiting and after the fecal impaction and colonoscopy, she has not much left in her. She is on Augmentin, Colace, Cozaar, petrolatum, DuoNeb, Mylicon, Norvasc, Plavix, ProctoFoam, IV fluids,Spiriva, Tylenol, Xanax, and Zetia. PHYSICAL EXAMINATION VITAL SIGNS: She has a 98.2 temp, 85 pulse, 167/75 blood pressure, 18 respiratory rate, 90% O2 sat on room air. HEENT: Head is atraumatic and normocephalic. Throat is moist. NECK: Supple. HEART: Regular rate. LUNGS: Clear to auscultation. ABDOMEN: Completely soft and nontender. Positive bowel sounds. No palpable mass. No guarding. No rebound. No CVA tenderness. EXTREMITIES: No edema. She is ambulating fairly well. LABORATORY DATA: She has a 6 white count, 12.2 hemoglobin, 37.1 hematocrit, with 194 platelets. The CMP has not populated yet. IMPRESSION: She is seeing by Infection Disease so far. She had sepsis due to acute colitis, postop day #1, from the fecal impaction removal. She is now on Augmentin. 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 We will check her labs tomorrow and increase Tylenol, to q. 4 hours p.r.n. pain. Yosi Yepez DO
[2016-12-02 09:12] LABS: HEMOGLOBIN 11.9 gm/dL (12.0-16.0); MEAN CELL VOLUME 84.5 fL (80.0-105.0); MEAN CORPUSCULAR HEMOGLOBIN 28.3 pg (25.0-35.0); MEAN CORPUSCULAR HGB CONC 33.5 g/dl (31.0-37.0); MEAN PLATELET VOLUME 9.3 fl (7.0-11.0); RBC 4.2 10^6/uL (3.5-6.1); RED CELL DISTRIBUTION WIDTH 13.9 % (11.5-14.5)
[2016-12-02] MEDS: Albuterol-Ipratrop 3 mg / 0.5 (3 ml) UD IH PRN (09:21)
[2016-12-02 09:26] LABS: ALB/GLOB RATIO 1.3 (1.1-1.8); ALBUMIN 3.4 g/dL (3.0-4.8); ALT/SGPT 28 U/L (7-56); AST/SGOT 27 U/L (15-39); BLOOD UREA NITROGEN 6 mg/dL (7-21); CALCIUM 9.2 mg/dL (8.4-10.5); GFR AFRICAN-AMERICAN > 60; GFR NON-AFRICAN AMERICAN > 60
[2016-12-02] MEDS ORDERED: Potassium Chloride 20 mEq ER Tab PO ONE (09:29)
[2016-12-02] MEDS: Amoxicillin-Clav 875-125 mg Tab PO SCH ×2 (11:12→22:50)
[2016-12-02] MEDS: Tiotropium 18 mcg Cap For Inhalation IH SCH (11:12)
[2016-12-02] MEDS: Hydrocortisone-Pramoxine 1%-1% Foam(10 gm) TOP SCH ×3 (11:15→18:05)
[2016-12-02] MEDS: Lubricant Eye Drops UD OU SCH ×4 (11:17→22:51)
--- NOTE | 2016-12-02 13:31 | PN ---
SUBJECTIVE: I saw her in her room on the Transitional Care Unit with her daughter. She had a normal bowel movement, but she has incontinent to the bowel, sometimes it is incontinence and sometimes she has a control. She also has a Wilkerson catheter in place and I removed the Wilkerson catheter. Also I get Refresh eye drops to the eyes. Otherwise, there is no abdominal pain which is an improvement. She is eating. She is comfortable trying physical therapy. She is currently on Augmentin, Colace, Cozaar, zinc oxide, albuterol inhaler, MiraLax, Mylicon, Norvasc, Plavix, and ProctoFoam. She is also complaining of hemorrhoids. I added Refresh eyedrops, IV fluids, Spiriva, Tylenol, Xanax, and Zetia. PHYSICAL EXAMINATION VITAL SIGNS: 98.2 temperature, 85 pulse, 113/66 blood pressure, and 18 respiratory rate. HEENT: Head atraumatic and normocephalic. Throat is moist. NECK: Supple. HEART: Regular rate. LUNGS: Clear to auscultation. ABDOMEN: Soft, nontender, and positive bowel sounds. EXTREMITIES: No edema. LABORATORY DATA: Last labs shows 6 white count, 11.9 hemoglobin and 35.5 hematocrit with 208 platelets. She has 141 sodium, 3.3 potassium, I will give her some potassium, BUN 5, creatinine 0.6, GFR is greater than 60, and blood sugars 109. Calcium is 9.1, total bilirubin is 0.7, AST is 23, ALT is 24, alkaline phosphatase is 57, total protein is 5.8, and bilirubin is 3.2. ASSESSMENT AND PLAN: She was seen by gastroenterology and infectious disease. My notes have been populated over. I saw her two days ago, did history and physical. I saw her yesterday and did a progress note and doing progress note today. She is cleared from surgical standpoint, she is being seen by GI. She is status post fecal impaction and removal of fecal impaction under anesthesia, sepsis, diabetes, hypertension, hemorrhoids, colitis, and had some fecal incontinence. Continue with aggressive treatment and care. Yosi Yepez DO [facility] # [id number] [place]
--- NOTE | 2016-12-02 13:53 | CP.PCM.PN ---
Subjective - Date & Time of Evaluation Date of Evaluation: 12/02/16 Time of Evaluation: 08:35 - Subjective Subjective: Eating ok, no abdominal pain, no vomiting, no fevers overnight. Objective - Vital Signs/Intake and Output Vital Signs (last 24 hours): Temp Pulse Resp BP Pulse Ox 98.2 F 108 H 18 113/63 98 12/01/16 08:00 12/01/16 10:08 12/01/16 08:00 12/01/16 10:08 12/01/16 06:00 - Medications Medications: Current Medications Acetaminophen (Tylenol 325mg Tab) 650 mg PO Q4H PRN PRN Reason: mild pain 4-7 Last Admin: 12/02/16 05:48 Dose: 650 mg Acetaminophen (Tylenol 325mg Tab) 650 mg PO Q4H PRN PRN Reason: Pain, moderate (4-7) Albuterol/Ipratropium (Duoneb 3 Mg/0.5 Mg (3 Ml) Ud) 3 ml IH [id number] PRN PRN Reason: sob Last Admin: 12/01/16 07:29 Dose: 3 ml Alprazolam (Xanax) 0.25 mg PO Q6 PRN; Protocol PRN Reason: Anxiety Stop: 12/07/16 00:01 Amlodipine Besylate (Norvasc) 5 mg PO QAM [facility] Last Admin: 12/01/16 10:08 Dose: 5 mg Amoxicillin/Clavulanate Potassium (Augmentin 875 Mg-125 Mg Tab) 1 tab PO Q12 [facility]AR[facility] PRN Reason: Protocol Last Admin: 12/01/16 21:37 Dose: 1 tab Clopidogrel Bisulfate (Plavix) 75 mg PO DAILY [facility]ARIDEH Last Admin: 12/01/16 10:07 Dose: 75 mg Docusate Sodium (Colace) 100 mg PO BID [facility] Last Admin: 12/01/16 17:17 Dose: 100 mg Ezetimibe (Zetia) 10 mg PO DAILY [facility]AR[facility] PRN Reason: Protocol Last Admin: 12/01/16 10:10 Dose: 10 mg Hydrocortisone/Pramoxine (Proctofoam) 1 gm TOP TID [facility]ARIDE[facility] PRN Reason: Protocol Last Admin: 12/01/16 20:40 Dose: 1 appl Sodium Chloride (Sodium Chloride 0.9%) 1,000 mls @ 75 mls/hr IV .[id number] [facility] Last Admin: 12/02/16 02:11 Dose: Not Given Losartan Potassium (Cozaar) 100 mg PO QAM [facility] Last Admin: 12/01/16 10:09 Dose: 100 mg Petrolatum (Desitin Maximum Strength Topical 40% Oint) 1 gm TOP Q4H PRN PRN Reason: Rash Polyethylene Glycol (Miralax) 17 gm PO DAILY [facility] PRN Reason: Protocol Simethicone (Mylicon Chew Tab) 80 mg PO HS PRN PRN Reason: GI distress Tiotropium [place] (Spiriva) 18 mcg IH DAILY [facility] Last Admin: 12/01/16 10:03 Dose: 18 mcg - Labs Labs: 12/01/16 08:19 12/01/16 08:19 - Constitutional Appears: Non-toxic, No Acute Distress - Head Exam Head Exam: NORMAL INSPECTION - ENT Exam ENT Exam: Mucous Membranes Moist - Neck Exam Neck Exam: absent: Lymphadenopathy, Meningismus - Respiratory Exam Respiratory Exam: Decreased Breath Sounds - Cardiovascular Exam Cardiovascular Exam: +S1, +S2 - GI/Abdominal Exam GI & Abdominal Exam: Soft. absent: Tenderness Assessment and Plan - Assessment and Plan (Free Text) Plan: Assessment Sepsis due to acute colitis associated with fecal impaction S/P rigid sigmoidoscopy and disimpaction POD #3 HTN DM carotid artery stenosis history of chronic constipation Plan will continue PO Augmentin for another day and d/c by tomorrow as long as she continues to eat well and without abdominal pain will continue to monitor clinically
[2016-12-02] MEDS: POLYETHYLENE GLYCOL 3350 17 GM/Dose PACKET PO SCH (18:05)
[2016-12-03] MEDS: Lubricant Eye Drops UD OU SCH ×5 (05:52→22:00)
[2016-12-03] MEDS: Albuterol-Ipratrop 3 mg / 0.5 (3 ml) UD IH PRN (07:25)
[2016-12-03] MEDS: Sodium Chloride 0.9% 1,000 ML IV SCH (07:58)
[2016-12-03] MEDS: Hydrocortisone-Pramoxine 1%-1% Foam(10 gm) TOP SCH ×3 (12:01→17:58)
[2016-12-03] MEDS: POLYETHYLENE GLYCOL 3350 17 GM/Dose PACKET PO SCH (12:02)
[2016-12-03] MEDS: Tiotropium 18 mcg Cap For Inhalation IH SCH (12:02)
[2016-12-03] MEDS: Amoxicillin-Clav 875-125 mg Tab PO SCH (12:03)
[2016-12-03] MEDS: Zinc Oxide Topical 40% Oint (Desitin) TOP PRN (16:40)
--- NOTE | 2016-12-03 16:43 | PN ---
DATE: 12/03/2016 SUBJECTIVE: The patient is in bed, in no acute distress, nontoxic. No fevers. PHYSICAL EXAMINATION VITAL SIGNS: Temperature is 98, blood pressure is 130/50, respiratory rate of 17, heart rate of 94. HEENT: Unremarkable. NECK: Supple. LUNGS: Decreased breath sounds. HEART: Normal S1 and S2. ABDOMEN: Soft. LABORATORY DATA: Reveals a white count of 6, hemoglobin of 11, BUN of 6, creatinine of 0.6. ASSESSMENT AND PLAN: An 81-year-old female was seen earlier this morning in room #303 with sepsis due to acute colitis associated with fecal impaction, status post rigid sigmoidoscopy and disimpaction, postprocedure day #3, now off antibiotics and the patient is doing better. She is now off antibiotics, is afebrile and we will follow with you. Umair Stovall MD
--- NOTE | 2016-12-03 17:34 | PN ---
DATE: 12/03/2016 SUBJECTIVE: I saw resting comfortably in bed with her daughter. She slept well last night. She is eating, good appetite. No abdominal pain. No shortness of breath. No chest pain. She is in good spirits. Bowels are better. Urine is better. Wilkerson catheter is out. I think I am going to discontinue the IV fluids. She is eating and drinking, and I will probably stop the Augmentin as she has had more than 7 days of antibiotics and she is improving. She is getting some diarrhea and I checked stool for C. diff, and they refused the blood this morning, but we will take it tomorrow. PHYSICAL EXAMINATION VITAL SIGNS: She has 98.2 temp; 71 pulse; 141/66 blood pressure; 18 respiratory rate; 95% O2 saturation on room air. HEENT: Head is atraumatic and normocephalic. Throat is moist. NECK: Supple. HEART: Regular rate. LUNGS: Decreased breath sounds, but clear. ABDOMEN: Soft. Positive bowel sounds. Nontender. EXTREMITIES: No edema. Physical therapy is definitely helping. She is currently on Augmentin, which I stopped. Colace, Cozaar, Desitin, DuoNeb, MiraLax, Mylicon, Norvasc, Plavix, Proctofoam cream , IV fluids which I just stopped, Spiriva, Tylenol, Xanax, and Zetia. LABORATORY DATA: Last labs on the were pretty good, the potassium was 3.5, we will check tomorrow. She is being seen by Infectious Disease and by GI and Surgery. She is day #3 status post disimpaction by anesthesia. She is eating okay. I am discontinuing the Augmentin. History of hypertension, diabetes, and she is weak. We also discontinued the IV fluids. Discussed with the daughter at length. Yosi Yepez DO MTDTito
[2016-12-04] MEDS: Lubricant Eye Drops UD OU SCH ×5 (06:06→21:15)
[2016-12-04] MEDS: Albuterol-Ipratrop 3 mg / 0.5 (3 ml) UD IH PRN (07:18)
[2016-12-04] MEDS: Hydrocortisone-Pramoxine 1%-1% Foam(10 gm) TOP SCH ×3 (10:05→17:18)
[2016-12-04] MEDS: POLYETHYLENE GLYCOL 3350 17 GM/Dose PACKET PO SCH (10:05)
[2016-12-04] MEDS: Tiotropium 18 mcg Cap For Inhalation IH SCH (10:05)
[2016-12-04] MEDS: Hemorrohoidal Ointment (2 oz) TOP SCH ×3 (11:19→21:12)
--- NOTE | 2016-12-04 12:40 | PN ---
DATE: SUBJECTIVE: I saw her in her room with her daughter who has got multiple complaints and questions. The mother is still having lots of hemorrhoid pain. They are upset that she is incontinent of stool every now and then and also incontinent of urine every now and then. The catheter is out. The IV fluids are off. She is eating okay. She was here for fecal impaction and under anesthesia had it removed. She is now getting physical therapy. She has been seen by infectious disease, GI and surgery. She is on Colace, Cozaar, Zinc, DuoNebs, Fleet's enema, Miralax, Mylicon, Norvasc, Plavix, Proctofoam, Refresh eye drops, Spiriva, Tylenol, Xanax and Zetia. PHYSICAL EXAMINATION VITAL SIGNS: 98.6 temp, 80 pulse, 166/66 blood pressure, 18 respiratory rate, 97% saturation on room air. HEENT: Head is atraumatic and normocephalic. Throat is moist. NECK: Supple. HEART: Regular rate. LUNGS: Decreased breath sounds, but clear. ABDOMEN: Soft. Positive bowel sound, nontender, soft, no guarding or rebound. No CVA tenderness. EXTREMITIES: No edema. RECTAL: She has hemorrhoids, which are bothering her; on multiple creams and I am not sure how quickly it is going to get better. LABORATORY DATA: 6 white count, 11.9 hemoglobin the other day. She had a 143 sodium, potassium 3.5 the other day. She is not letting me do blood test, she is refusing. I asked them to please do the blood test, so we can make a decision if we need to replace anything. ASSESSMENT AND PLAN: Continue with physical therapy as per infectious disease, GI and surgery. Continue with aggressive treatment and care. We will check a UA, C&S and labs.. Yosi Yepez DO
--- NOTE | 2016-12-04 15:08 | PN ---
SUBJECTIVE: I examined Ms. Flores this morning. She is an 81-year-old white female admitted with complaints of severe anorectal pain with fecal impaction resolved by surgery. I spoke to the patient as well as the patient's daughter who is at bedside. Note that my initial consultation was dictated on 12/01/2016. At that time point, I suggested that Miralax plus a stool softener on daily basis, intermittent doses of glycerin suppository, Fleet Enema, and/or use of MOM or magnesium citrate was also suggested. I reviewed this patient's vital signs. On examination this morning, the belly is soft and no tenderness was elicited. I could not appreciate any clinical signs of a fecal impaction. OVERALL ASSESSMENT: This is an 81-year-old white female with complaints of constipation. She needs bowel regimen in the form of Miralax plus a stool softener on a daily basis. *Secondary to both, one can use glycerin suppositories, fleets, and periodic MOM; magnesium citrate on a p.r.n. basis. Because the patient was concerned that she has not had a bowel for a couple of days, I would suggest 2 Fleet Enemas today. There were also complaints of hemorrhoids; for which one can use either a foam or a steroid suppository in the form of Anusol-HC. I have ordered 2 Fleet Enemas today only. The patient's daughter was also concerned about urinary incontinence. I consider a urology evaluation for this. Uday Michel DO
[2016-12-04] MEDS: Zinc Oxide Topical 40% Oint (Desitin) TOP PRN (21:16)
--- NOTE | 2016-12-05 02:07 | PN ---
DATE: 12/04/2016 SUBJECTIVE: The patient is in room 303. The patient is in bed in no acute distress. Nontoxic. PHYSICAL EXAMINATION VITAL SIGNS: Temperature is 98, blood pressure is 119/50 and respiratory rate of 16. HEENT: Unremarkable. NECK: Supple. HEART: Normal S1 and S2. LUNGS: Decreased breath sounds. ABDOMEN: Soft and nontender. LABORATORY DATA: Reveals the white count of 6, hemoglobin of 12, platelets of 194. Chemistries reveals a BUN of 6, creatinine of 0.6. Microbiology is noted. ASSESSMENT AND PLAN: An 81-year-old female, was seen earlier this morning in room 303 with sepsis, acute colitis with fecal impaction, status post sigmoidoscopy and disimpaction, postprocedure day #4, currently off antibiotics. The patient's sister at the bedside. Reviewed the medications, confirms the patient to be off of antibiotics. Umair Stovall MD
--- NOTE | 2016-12-05 03:37 | PN ---
DATE: 12/04/2016 SUBJECTIVE: On exam, the patient is in bed with no acute distress. The patient was seen early this morning in room 303 and the patient is doing well. PHYSICAL EXAMINATION: VITAL SIGNS: Temperature is 98, blood pressure is 130/50, and respiratory rate is 18. HEENT: Unremarkable. NECK: Supple. LUNGS: Decreased breath sounds. HEART: Normal S1 and S2. ABDOMEN: Soft,nontender. LABORATORY DATA: Noted. ASSESSMENT AND PLAN: An 81-year-old who was seen earlier this morning. The patient's sister is at the bedside. Acute colitis associated with fecal impaction, currently off of antibiotics, afebrile. Umair Stovall MD
[2016-12-05] MEDS: Lubricant Eye Drops UD OU SCH ×5 (06:32→21:44)
[2016-12-05] MEDS: Hemorrohoidal Ointment (2 oz) TOP SCH ×3 (06:32→21:43)
[2016-12-05] MEDS: POLYETHYLENE GLYCOL 3350 17 GM/Dose PACKET PO SCH (10:17)
[2016-12-05] MEDS: Hydrocortisone-Pramoxine 1%-1% Foam(10 gm) TOP SCH ×3 (10:19→17:22)
[2016-12-05] MEDS: Tiotropium 18 mcg Cap For Inhalation IH SCH (10:19)
--- NOTE | 2016-12-05 15:17 | PN ---
DATE: SUBJECTIVE: I saw her resting in bed, sitting up, eating her breakfast. The daughter is there with many equations for me. She is comfortable and she woke up twice because her bathroom last night, urinating. She had a bowel movement yesterday. She is becoming continent now of the urine and more control over the bowels, this is important, less abdominal pain, and she is eating. MEDICATIONS: She is on Colace, Cozaar, Desitin, DuoNeb, MiraLax, Mylicon, Norvasc, Plavix, Proctofoam cream, Refresh, Spiriva, Tylenol, Xanax, and Zetia. She did not complain to me about hemorrhoids today. PHYSICAL EXAMINATION: VITAL SIGNS: 98.9 temperature, 77 pulse, 156/64 blood pressure, 18 respiratory rate, and 97% O2 saturation on room air. HEENT: Head is atraumatic and normocephalic. Throat is moist. NECK: Supple. HEART: Regular rate. LUNGS: Clear to auscultation. ABDOMEN: Soft and nontender, positive bowel sounds. EXTREMITIES: No edema. She is still refusing the labs. She is being seen by infectious disease, GI, and surgery. She had acute colitis with fecal impaction, she is off antibiotics, and I think she is doing well. The plan is to discharge her tomorrow home. I will follow up on house calls, and with the urinary continence getting back, hope that she will do very well,check her labs tomorrow, I know she will refuse them, but I will order them. Yosi Yepez DO
[2016-12-05] MEDS: Albuterol-Ipratrop 3 mg / 0.5 (3 ml) UD IH PRN (15:49)
[2016-12-05 17:01] VITALS: BP 137/56; PULSE 84; RESP 18; TEMP 98.4; O2SAT 94
[2016-12-05] MEDS: Zinc Oxide Topical 40% Oint (Desitin) TOP PRN (21:43)
--- NOTE | 2016-12-05 22:53 | PN ---
DATE: 12/05/2016 SUBJECTIVE: The patient is in bed in no acute distress. She was seen earlier this morning in room 303, nontoxic. No fevers. PHYSICAL EXAMINATION: VITAL SIGNS: Temperature is 98, blood pressure is 150/70 and respiratory rate of 16. HEENT: Unremarkable. NECK: Supple. LUNGS: Decreased breath sounds. HEART: Normal S1 and S2. ABDOMEN: Soft. LABORATORY DATA: Laboratory examination reveals the patient to have a white count of 6, hemoglobin of 11 and platelets of 208. Chemistries reveal a BUN of 6, creatinine of 0.6. ASSESSMENT AND PLAN: This is an 81-year-old female who was seen early this morning in room 303, doing well. The patient had acute colitis associated with a fecal impaction. Currently off of antibiotics and afebrile and the patient is at risk for developing nosocomial infections. Umair Stovall MD
[2016-12-06] MEDS: Lubricant Eye Drops UD OU SCH ×2 (01:50→06:30)
[2016-12-06] MEDS: Hemorrohoidal Ointment (2 oz) TOP SCH (06:31)
[2016-12-06] MEDS: Albuterol-Ipratrop 3 mg / 0.5 (3 ml) UD IH PRN (07:42)
[2016-12-06] MEDS: POLYETHYLENE GLYCOL 3350 17 GM/Dose PACKET PO SCH (09:58)
[2016-12-06] MEDS: Tiotropium 18 mcg Cap For Inhalation IH SCH (09:59)
--- NOTE | 2016-12-06 18:01 | DS ---
HISTORY OF PRESENT ILLNESS: I saw her resting comfortably in bed. Her biggest problem this morning that was gas. I will add Protonix to her medications with some Mylicon that she used this morning. PHYSICAL EXAMINATION: VITAL SIGNS: She has a temperature 98.4, pulse 84, blood pressure 137/56, respiratory rate 18, O2 saturation 94% on room air. HEENT: Head is atraumatic and normocephalic. HEART: Regular rate. LUNGS: Decreased breath sounds, but clear. ABDOMEN: Soft and nontender. Positive bowel sounds. EXTREMITIES: No edema. MEDICATIONS: She will be going home on: 1. Colace. 2. Cozaar. 3. Desitin. 4. DuoNeb. 5. MiraLax. 6. Mylicon. 7. Norvasc. 8. Plavix. 9. ProctoFoam. 10. On artificial tears. 11. Spiriva. 12. Xanax. 13. Zetia. 14. Protonix 40 mg, not sure why that GI doctor did not add that. LABORATORY DATA: Last labs she has a 6 white count, 11.9 hemoglobin, 128 platelets and she refused labs last 3 days. Sodium 143, last time was 3.5 potassium, I replaced it do not know what the potassium is now, she refused it. BUN is 6 and creatinine 0.6. GFR is greater than 60, sugar is 122, calcium 9.2, total bilirubin is 0.6, AST is 27, ALT is 20, alkaline phosphates 7, total protein is 6. Not sure what the labs are at this time. She refuses any other lab. ASSESSMENT AND PLAN: She was seen by infectious disease. She is off antibiotic. She was seen by GI, they did nothing until the 12/04/2016. I added Protonix. She will go home today. She will continue with aggressive treatment and care. She is to be seen in the office or on house call in the next week. Yosi Yepez DO
== END 2016-12-06 18:57 | disposition home or self-care (01) | DRG 872 ==
LOC: TRCU 19:23
PROVIDERS: ADMIT Family Medicine; ATTEND Family Medicine
PROC: F07Z9ZZ Gait Training/Functional Ambulation Treatment (ICD-10-PCS; principal; 2016-11-30)
PROC: F07M6ZZ Therapeutic Exercise Treatment of Musculoskeletal System - Whole Body (ICD-10-PCS; 2016-11-30)
PROC: F08Z1ZZ Dressing Techniques Treatment (ICD-10-PCS; 2016-12-02)
PROC: F08Z2ZZ Grooming/Personal Hygiene Treatment (ICD-10-PCS; 2016-12-02)
PROC: F08Z4ZZ Home Management Treatment (ICD-10-PCS; 2016-12-02)
DX: A41.9 Sepsis, unspecified organism (principal); F03.90 Unspecified dementia, unspecified severity, without behavioral disturbance, psychotic disturbance, mood disturbance, and anxiety; I65.29 Occlusion and stenosis of unspecified carotid artery; J44.9 Chronic obstructive pulmonary disease, unspecified; E10.9 Type 1 diabetes mellitus without complications; E78.00 Pure hypercholesterolemia, unspecified; H91.90 Unspecified hearing loss, unspecified ear; I10 Essential (primary) hypertension; I25.10 Atherosclerotic heart disease of native coronary artery without angina pectoris; I34.1 Nonrheumatic mitral (valve) prolapse; K52.9 Noninfective gastroenteritis and colitis, unspecified; K56.41 Fecal impaction; K64.9 Unspecified hemorrhoids; R32 Unspecified urinary incontinence; R33.9 Retention of urine, unspecified; Z79.4 Long term (current) use of insulin; Z87.01 Personal history of pneumonia (recurrent); Z87.442 Personal history of urinary calculi; Z87.891 Personal history of nicotine dependence

== ENCOUNTER 2018-08-05 06:38 | Outpatient (CLI) | payer MEDICARE, MEDICAID | END 2018-08-05 06:39 | disposition home or self-care (01) | LOC: CARDIO 06:38 | DX: R07.9 Chest pain, unspecified (principal) ==